=== PATIENT | male | born 1955 | race Caucasian/White ===

== ENCOUNTER 2021-08-15 13:59 | Inpatient (IN) | payer MEDICARE, OTHER ==
[~2021-08-15] VITALS: Ht 188 cm; Wt 98.4 kg
--- NOTE | 2021-08-15 14:01 | NUR ---
TO ER BED 12, [facility]MEN PA FROM [facility] DUE TO BUN=81 AND CREA=4.5, SENT BY DR CAMACHO, AAOX3, CHANGED INTO A GOWN, CONNECTED TO MONITOR, AWAITING MD ORDERS
--- NOTE | 2021-08-15 14:43 | NUR ---
SALOON KEEPER AT BEDSIDE FOR BLOOD DRAW
--- NOTE | 2021-08-15 14:50 | NUR ---
COVID SWAB AND URINE COLLECTED AND SENT TO LAB
[2021-08-15 14:55] LABS: BASOPHILS % (AUTO) 0.7 % (0.0-2.0); EOSINOPHILS % (AUTO) 4.8 % (0.0-6.0); HEMATOCRIT 23 % (39-51); LYMPHOCYTES # (AUTO) 1.1 K/uL (0.8-4.8); LYMPHOCYTES % (AUTO) 18.9 % (20.0-44.0); MEAN CORPUSCULAR HGB CONC 34 g/dl (31.0-36.0); MEAN CORPUSCULAR VOLUME 95 fL (80-96); MONOCYTES # (AUTO) 0.5 K/uL (0.1-1.30); MONOCYTES % (AUTO) 9.7 % (2.0-12.0); NEUTROPHILS # (AUTO) 3.7 K/uL (1.8-8.9); NEUTROPHILS % (AUTO) 65.9 % (43.0-81.0); PLATELET COUNT (AUTO) 145 K/uL (150-450); RED BLOOD CELL COUNT(AUTO) 2.46 MIL/uL (4.5-6.0); WHITE BLOOD COUNT (AUTO) 5.6 K/uL (4.3-11.0)
[2021-08-15] MEDS ORDERED: IV NS 0.9% 1,000 ML BAG IV ONE (15:00)
[2021-08-15] MEDS ORDERED: MINE133E RC (15:01)
[2021-08-15] MEDS ORDERED: AMIN887L PO (15:01)
[2021-08-15] MEDS ORDERED: MAGN400O6 PO (15:01)
[2021-08-15] MEDS ORDERED: LEVE500T9 PO (15:01)
[2021-08-15] MEDS ORDERED: APIX5TAB PO (15:01)
[2021-08-15] MEDS ORDERED: ACET325T53 PO (15:01)
[2021-08-15] MEDS ORDERED: RISP1TAB7 PO (15:01)
[2021-08-15] MEDS ORDERED: MULT-439 PO (15:01)
[2021-08-15] MEDS ORDERED: ASCO500C17 PO (15:01)
[2021-08-15] MEDS ORDERED: FERR325T23 PO (15:01)
[2021-08-15] MEDS ORDERED: PHEN100C4 PO (15:01)
[2021-08-15] MEDS ORDERED: DIVA250T PO (15:01)
[2021-08-15] MEDS ORDERED: BENZ1TAB7 PO (15:01)
[2021-08-15 15:05] LABS: CALCIUM, SERUM 8.1 mg/dL (8.5-10.1); CREATININE 4.7 mg/dL (0.6-1.3); POTASSIUM 5.8 mmol/L (3.5-5.1)
[2021-08-15 15:12] LABS: ALBUMIN 1.6 g/dL (3.4-5.0); BILIRUBIN,DIRECT 0.1 mg/dL (0.0-0.2); BILIRUBIN,TOTAL 0.1 mg/dL (0.2-1.0); TOTAL PROTEIN, SERUM 4.7 g/dL (6.4-8.2)
[2021-08-15 15:16] LABS: BILIRUBIN,URINE NEGATIVE (NEGATIVE); COLOR,URINE YELLOW (YELLOW); LEUKOCYTE ESTERASE ,URINE NEGATIVE (NEGATIVE); NITRITE, URINE NEGATIVE (NEGATIVE); PROTEIN,URINE >=300 mg/dl (NEGATIVE); UGLUCOSE 100 MG/DL mg/dL (NEGATIVE); UROBILINOGEN,URINE 0.2 EU/dL (0.2)
[2021-08-15 15:22] LABS: BACTERIA,URINE 1+ /HPF (None Seen); RBC,URINE 21-50 /HPF (0-2); WBC,URINE 0-2 /HPF (0-3)
[2021-08-15 15:23] LABS: COARSE GRANULAR CASTS,URINE Few /LPF (None Seen); HYALINE CASTS, URINE Few /LPF (None Seen); MUCUS,URINE Few /LPF (None Seen); WAXY CASTS,URINE RARE /LPF (None Seen)
[2021-08-15] MEDS ORDERED: diphenhydrAMINE HCL 50 MG/ML VIAL ONE (15:26)
[2021-08-15] MEDS ORDERED: LORAZEPAM INJ 2 MG/ML VIAL ONE ×2 (15:27→20:43)
[2021-08-15] MEDS ORDERED: HALOPERIDOL LACTATE INJ 5 MG/ML VIAL ONE (15:27)
[2021-08-15] MEDS ORDERED: LORAZEPAM INJ 2 MG/ML VIAL IM ONE (15:30)
[2021-08-15] MEDS ORDERED: NICOTINE PATCH (21MG) 21 MG PATCH.TD24 TD ONE (15:30)
[2021-08-15] MEDS ORDERED: HALOPERIDOL LACTATE INJ 5 MG/ML VIAL IM ONE (15:30)
[2021-08-15] MEDS ORDERED: diphenhydrAMINE HCL 50 MG/ML VIAL IM ONE (15:30)
[2021-08-15] MEDS ORDERED: NICOTINE PATCH (21MG) 21 MG PATCH.TD24 TD SCH (15:30)
[2021-08-15 15:31] LABS: BAND % (MANUAL) 1 % (0.0-5.0); EOSINOPHILS % (MANUAL) 4 % (0-4); LYMPHOCYTES % (MANUAL) 24 % (16-48); MONOCYTES % (MANUAL) 6 % (0-11.0); NEUTROPHILS % (MANUAL) 65 (42-76)
[2021-08-15] MEDS ORDERED: SODIUM POLYSTYRENE SULFONATE 15 G/60 ML BOTTLE RC ONE (16:30)
[2021-08-15] MEDS ORDERED: SODIUM POLYSTYRENE SULFONATE 15 G/60 ML BOTTLE ONE (16:39)
[2021-08-15] MEDS ORDERED: ONDANSETRON HCL/PF 4 MG/2 ML VIAL IVP PRN (18:00)
[2021-08-15] MEDS ORDERED: MAG HYDROX/AL HYDROX/SIMETH 30 ML UDC PO PRN (18:00)
[2021-08-15] MEDS ORDERED: MINERAL OIL 133 ML (PYXIS) 1 EA ENEMA RC PRN (18:00)
[2021-08-15] MEDS ORDERED: Z GUARD REMEDY 4 OZ OINT TP PRN (18:00)
[2021-08-15] MEDS ORDERED: ACETAMINOPHEN 325 MG TABLET PO PRN (18:00)
[2021-08-15] MEDS ORDERED: MAGNESIUM HYDROXIDE 30 ML UDC PO PRN ×2 (18:00)
[2021-08-15] MEDS ORDERED: IV NS 0.9% 1,000 ML IV PRN (18:00)
[2021-08-15] MEDS ORDERED: Sodium Bicarbonate 150 MEQ in IV D5W 1,000 ML IV PRN (19:00)
[2021-08-15 19:58] LABS: PHENYTOIN (DILANTIN) 2.1 ug/ml (10.0-20.0)
[2021-08-15] MEDS ORDERED: LEVETIRACETAM (250 MG) 250 MG TABLET PO ONE (20:42)
[2021-08-15] MEDS: LORAZEPAM INJ 2 MG/ML VIAL IV PRN (20:50)
[2021-08-15] MEDS: LEVETIRACETAM (250 MG) 250 MG TABLET PO SCH (20:50)
--- NOTE | 2021-08-15 20:50 | NUR ---
PT RESTLESS AND AGITATED; YELLING. NON-PHAMACOLOGICAL INTERVENTIONS DONE: ADLS, URINAL, FOOD, WATER, REPOSITIONING. ADMINISTERED ATIVAN 0.5MG IVP VIA RAC #20G S/L ORDERED. WILL REASSESS FOR RESTLESSNESS AND AGITATIONS. BP 188/105 HR 102
--- NOTE | 2021-08-16 01:49 | NUR ---
ADLS DONE. PT KEPT C/D. IV DISLODGED. ESTABLISHED LAC #20G S/L SODIUM BICARB 150MEQ @ 50ML/HR. TOLERATING WELL
--- NOTE | 2021-08-16 05:27 | NUR ---
ER PROPERTY UNDERWRITER @ BEDSIDE
[2021-08-16 05:56] LABS: BASOPHILS # (AUTO) 0.1 K/uL (0.0-0.2); BASOPHILS % (AUTO) 0.7 % (0.0-2.0); EOSINOPHILS % (AUTO) 2.6 % (0.0-6.0); HEMATOCRIT 22 % (39-51); HEMOGLOBIN 7.7 g/dL (13.5-17.5); LYMPHOCYTES # (AUTO) 0.9 K/uL (0.8-4.8); LYMPHOCYTES % (AUTO) 12.8 % (20.0-44.0); MEAN CORPUSCULAR HGB CONC 35 g/dl (31.0-36.0); MEAN CORPUSCULAR VOLUME 94 fL (80-96); MONOCYTES # (AUTO) 0.8 K/uL (0.1-1.30); MONOCYTES % (AUTO) 10.4 % (2.0-12.0); NEUTROPHILS # (AUTO) 5.5 K/uL (1.8-8.9); NEUTROPHILS % (AUTO) 73.5 % (43.0-81.0); PLATELET COUNT (AUTO) 147 K/uL (150-450); RED BLOOD CELL COUNT(AUTO) 2.38 MIL/uL (4.5-6.0); WHITE BLOOD COUNT (AUTO) 7.4 K/uL (4.3-11.0)
[2021-08-16 06:25] LABS: ALBUMIN 1.6 g/dL (3.4-5.0); BILIRUBIN,TOTAL 0.2 mg/dL (0.2-1.0); CALCIUM, SERUM 7.6 mg/dL (8.5-10.1); CREATININE 4.7 mg/dL (0.6-1.3); MAGNESIUM 1.8 mg/dL (1.8-2.4); PHOSPHORUS 6.9 mg/dL (2.5-4.9); POTASSIUM 5.5 mmol/L (3.5-5.1); TOTAL PROTEIN, SERUM 4.8 g/dL (6.4-8.2)
--- NOTE | 2021-08-16 06:44 | NUR ---
ASSIGNED TO 312-1. REPORT TO BE GIVEN AFTER CHANGE OF SHIFT.
--- NOTE | 2021-08-16 07:56 | NUR ---
REPORT GIVEN TO MIL SHORT FOR MONTY
--- NOTE | 2021-08-16 08:30 | NUR ---
TRANSFERRED TO BED 312 IN STABLE CONDITION
[2021-08-16 08:35] VITALS: BP 153/88
[2021-08-16] MEDS ORDERED: SODIUM POLYSTYRENE SULFONATE 15 G/60 ML BOTTLE PO ONE (09:00)
[2021-08-16] MEDS ORDERED: PROSTAT (PYXIS) 30 ML UDC PO SCH (09:00)
--- NOTE | 2021-08-16 09:00 | NUR ---
MS RN NOTES MD CONTACTED TO VERIFY ADMINISTRATION OF SCHEDULED ELIQUIS 5 MG PO. MD CAMACHO INFORMED PATIENT'S HGB 7.7 AND APPROVED ADMINISTRATION OF MEDICATION. ELIQUIS 5 MG PO ADMINISTERED ORDERED.
[2021-08-16] MEDS: risperiDONE 1 MG TABLET PO SCH ×3 (09:06→16:40)
[2021-08-16] MEDS: MULTIVIT W/MINERALS 1 TAB TABLET PO SCH (09:06)
[2021-08-16] MEDS: DIVALPROEX SODIUM 250 MG TABLET.DR PO SCH ×2 (09:06→21:48)
[2021-08-16] MEDS: PHENYTOIN EXTENDED RELEASE 100 MG CAPSULE PO SCH ×3 (09:06→16:39)
[2021-08-16] MEDS: ASCORBIC ACID 500 MG TABLET PO SCH (09:07)
[2021-08-16] MEDS: BENZTROPINE MESYLATE (1 MG) 1 MG TABLET PO SCH (09:07)
[2021-08-16] MEDS: LEVETIRACETAM (250 MG) 250 MG TABLET PO SCH ×2 (09:07→21:48)
[2021-08-16] MEDS: FERROUS SULFATE (325 MG) 325 MG/TAB TABLET PO SCH (09:07)
[2021-08-16] MEDS: APIXABAN 5 MG TABLET PO SCH ×2 (09:39→16:40)
--- NOTE | 2021-08-16 11:09 | NUR ---
MS RN ADMITTING NOTES ADMITTED A 65 Y/O MALE TO UNIT AT 0830 VIA GURNEY WITH DIAGNOSIS OF RENAL FAILURE. PT IS A/O X3. ABLE TO MAKE NEEDS KNOWN. ORIENTED TO STAFF AND ROOM. PT PROVIDED WITH 1:1 SITTER PER MD ORDER FOR SAFETY AND CLOSE MONITORING. ON ROOM AIR, TOLERATING WELL WITH NO ACUTE RESPIRATORY DISTRESS NOTED. ASSESSMENT DONE. PT WITH IV ACCESS PRESENT ON LAC G#20 INTACT WITH IVF OF NA BICARB 150MEQ IN D5W AT 5OML/HR, NO S/S X OF INFILTRATION AT SITE NOTED.. ABDOMEN SOFT, NON-TENDER AND NON-DISTENDED WITH BOWEL SOUNDS PRESENT ON FOUR QUADRANTS. LUNGS CLEAR ON AUSCULTATION. PT WITH INTACT SKIN AND NOTED WITH PITTING EDEMA ON BLE AND FEET, ELEVATED WITH PILLOWS. SAFETY MEASURES INITIATED; BED PLACED IN LOWEST LOCKED POSITION WITH SIDE-RAILS UP X2. CALL LIGHT WITHIN REACH. WILL CONTINUE TO MONITOR.
[2021-08-16] MEDS: PROSOURCE / PROSTAT (PYXIS) 30 ML UDC PO SCH ×2 (12:19→17:25)
[2021-08-16] MEDS: LORAZEPAM INJ 2 MG/ML VIAL IV PRN (15:02)
--- NOTE | 2021-08-16 15:03 | NUR ---
RN NOTES PT IS VERY ANXIOUS, RESTLESS AND SCREAMING HE WANT'S TO GO BACK TO [facility]. PRN ATIVAN 0.5MG IVP ADMINISTERED AT 1502. WILL CONTINUE TO CLOSELY MONITOR PT.
--- NOTE | 2021-08-16 15:30 | NUR ---
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
[2021-08-16 16:00] VITALS: BP 151/79
--- NOTE | 2021-08-16 18:18 | NUR ---
MS RN CLOSING NOTES PATIENT A/O X 3, ABLE TO MAKE NEEDS KNOWN, WITH 1:1 SITTER PER MD ORDER FOR SAFETY AND CLOSE MONITORING. ON ROOM AIR, TOLERATING WELL WITH NO ACUTE RESPIRATORY DISTRESS NOTED. IV ACCESS PRESENT ON LAC G#20 INTACT WITH IVF OF NA BICARB 150MEQ IN D5W AT 5OML/HR, NO S/S X OF INFILTRATION AT SITE NOTED. SAFETY MEASURES INITIATED; BED PLACED IN LOWEST LOCKED POSITION WITH SIDE-RAILS UP X2. CALL LIGHT WITHIN REACH. WILL ENDORSE TO TOOL BUILDER FOR MONTY.
--- NOTE | 2021-08-16 19:58 | NUR ---
MS RN OPENING NOTE PATIENT RECEIVED ASLEEP IN BED W/ SCOTT MENDEZ, IN THE ROOM. A/OX3. NO S/S OF DISTRESS, BREATHING SYMMETRICAL. RAC #20 INTACT AND PATENT RUNNING W/ NaHCO3 IN D5W RUNNING AT 50ML/HR. SAFETY MEASURES IN PLACE: BED AT LOWEST POSITION, RAILS UP X2, CALL ROONEY WITHIN REACH. WILL CONTINUE TO MONITOR PATIENT.
[2021-08-16 20:00] VITALS: BP 154/89
--- NOTE | 2021-08-17 06:27 | NUR ---
MS RN CLOSING NOTE PATIENT ASLEEP IN BED. A/OX3. NO S/S OF DISTRESS, BREATHING SYMMETRICAL. NO PAIN NOTED. RAC #20 SL INTACT AND PATENT. SAFETY MEASURES IN PLACE: BED AT LOWEST POSITION, RAILS UP X2, CALL ROONEY WITHIN REACH. WILL ENDORSE TO FOLLOWING SHIFT FOR MONTY.
[2021-08-17 07:21] LABS: BASOPHILS # (AUTO) 0.1 K/uL (0.0-0.2); BASOPHILS % (AUTO) 0.8 % (0.0-2.0); EOSINOPHILS % (AUTO) 3.7 % (0.0-6.0); LYMPHOCYTES # (AUTO) 1.3 K/uL (0.8-4.8); LYMPHOCYTES % (AUTO) 21.4 % (20.0-44.0); MEAN CORPUSCULAR HGB CONC 34 g/dl (31.0-36.0); MEAN CORPUSCULAR VOLUME 95 fL (80-96); MONOCYTES # (AUTO) 0.6 K/uL (0.1-1.30); MONOCYTES % (AUTO) 10.2 % (2.0-12.0); NEUTROPHILS % (AUTO) 63.9 % (43.0-81.0); PLATELET COUNT (AUTO) 148 K/uL (150-450); RED BLOOD CELL COUNT(AUTO) 2.05 MIL/uL (4.5-6.0); WHITE BLOOD COUNT (AUTO) 6.2 K/uL (4.3-11.0)
[2021-08-17 07:35] LABS: HEMATOCRIT 19 % (39-51); HEMOGLOBIN 6.7 g/dL (13.5-17.5)
[2021-08-17 07:37] LABS: CALCIUM, SERUM 7.6 mg/dL (8.5-10.1); MAGNESIUM 1.8 mg/dL (1.8-2.4); PHOSPHORUS 7.3 mg/dL (2.5-4.9); POTASSIUM 4.5 mmol/L (3.5-5.1)
--- NOTE | 2021-08-17 07:38 | NUR ---
MS RN OPENING NOTES RECEIVED PATIENT ASLEEP IN BED, EASY TO AROUSE. PT WITH VALENCIA MENDEZ AT BEDSIDE. A/O X 3. NO SOB. NO S/SX OF DISTRESS NOTED. NO C/O PAIN. BREATHING IS EVEN AND UNLABORED. IV ACCESS RAC#20 PATENT AND INTACT. SAFETY MEASURES IN PLACE WITH BED AT LOWEST POSITION, SIDE RAILS UP X2, CALL LIGHT IS WITHIN REACH. WILL CONTINUE TO MONITOR PATIENT THROUGHOUT SHIFT.
--- NOTE | 2021-08-17 08:00 | NUR ---
0803 LAB CALLED SPOKE WITH SAMRA TO REPORT CRITICAL LAB VALUE FOR HGB 6.[address] CAMACHO MADE AWARE. TYPE AND SCREEN ORDERED.
[2021-08-17] MEDS: LEVETIRACETAM (250 MG) 250 MG TABLET PO SCH ×2 (09:17→20:37)
[2021-08-17] MEDS: MULTIVIT W/MINERALS 1 TAB TABLET PO SCH (09:17)
[2021-08-17] MEDS: LORAZEPAM INJ 2 MG/ML VIAL IV PRN (09:17)
[2021-08-17] MEDS: risperiDONE 1 MG TABLET PO SCH ×3 (09:17→16:33)
[2021-08-17] MEDS: BENZTROPINE MESYLATE (1 MG) 1 MG TABLET PO SCH (09:17)
[2021-08-17] MEDS: ASCORBIC ACID 500 MG TABLET PO SCH (09:18)
[2021-08-17] MEDS: PHENYTOIN EXTENDED RELEASE 100 MG CAPSULE PO SCH ×3 (09:18→16:33)
[2021-08-17] MEDS: DIVALPROEX SODIUM 250 MG TABLET.DR PO SCH ×2 (09:18→20:37)
[2021-08-17] MEDS: FERROUS SULFATE (325 MG) 325 MG/TAB TABLET PO SCH (09:18)
[2021-08-17] MEDS: PROSOURCE / PROSTAT (PYXIS) 30 ML UDC PO SCH ×3 (09:19→16:33)
[2021-08-17] MEDS: Sodium Bicarbonate 150 MEQ in IV D5W 1,000 ML IV SCH (09:36)
[2021-08-17 11:06] LABS: COMPLEMENT C3, SERUM 114 mg/dL (82-167); COMPLEMENT C4, SERUM 26 mg/dL (12-38)
[2021-08-17 12:25] LABS: IRON, SERUM 87 ug/dl (50-175); TOTAL IRON BINDING CAPACITY 214 ug/dl (250-450)
[2021-08-17 13:23] LABS: EOSINOPHILS % (MANUAL) 3 % (0-4); LYMPHOCYTES % (MANUAL) 23 % (16-48); MONOCYTES % (MANUAL) 9 % (0-11.0); NEUTROPHILS % (MANUAL) 65 (42-76)
--- NOTE | 2021-08-17 16:02 | NUR ---
RN NOTE CALLED BLOOD BANK TO GET AN UPDATE REGARDING PRBC ORDER, SPOKE WITH LISANDRA. TYPE AND SCREEN NOT YET COMPLETED.
--- NOTE | 2021-08-17 16:49 | NUR ---
RN NOTE CHARGE NURSE, ADRI CALLED BLOOD BANK FOR PRBC UPDATE. PER LISANDRA AT BLOOD BANK, SHE IS WORKING ALONE AND IT IS BUSY. PRBC NOT READY. WILL CONT. TO F/U.
[2021-08-17 18:21] VITALS: BP 139/69
--- NOTE | 2021-08-17 18:24 | NUR ---
RN NOTE STARTED PRBC TRANSFUSION AT THIS TIME. ALL VITALS RECORDED AND STABLE. VERIFIED PRB UNIT WITH DEJA MONTENEGRO. WILL MONITOR PT FOR ANY REACTIONS.
[2021-08-17 18:36] VITALS: BP 146/85
[2021-08-17 18:51] VITALS: BP 155/81
--- NOTE | 2021-08-17 18:54 | NUR ---
MS RN CLOSING NOTES PATIENT ASLEEP IN BED, EASY TO AROUSE. PT WITH VALENCIA MENDEZ AT BEDSIDE. A/O X 3. PRBC RUNNING AT THIS TIME AT 100MLS/HR. NO SOB. NO S/SX OF DISTRESS NOTED. NO C/O PAIN. BREATHING IS EVEN AND UNLABORED. IV ACCESS RAC#20 PATENT AND INTACT . SAFETY MEASURES IN PLACE WITH BED AT LOWEST POSITION, SIDE RAILS UP X2, CALL LIGHT IS WITHIN REACH. WILL CONTINUE TO MONITOR PATIENT THROUGHOUT SHIFT. Addendum: 08/17/21 at 1855 by AVA GRISSOM RN ELENA
--- NOTE | 2021-08-17 18:55 | NUR ---
MS RN CLOSING NOTES PATIENT ASLEEP IN BED, EASY TO AROUSE. PT WITH VALENCIA MENDEZ AT BEDSIDE. A/O X 3. PRBC RUNNING AT THIS TIME AT 100MLS/HR. NO SOB. NO S/SX OF DISTRESS NOTED. NO C/O PAIN. BREATHING IS EVEN AND UNLABORED. IV ACCESS RAC#20 PATENT AND INTACT . SAFETY MEASURES IN PLACE WITH BED AT LOWEST POSITION, SIDE RAILS UP X2, CALL LIGHT IS WITHIN REACH. WILL ENDORSE CONTINUITY OF CARE TO ONCOMING SHIFT.
[2021-08-17 19:21] VITALS: BP 133/76
--- NOTE | 2021-08-17 19:30 | NUR ---
RN OPENING NOTE PATIENT IN BED EYES CLOSED. EASILY AWAKENED AND OPENS EYES. A/O X 3 AT THIS TIME. 1:1 SITTER AT BEDSIDE. PATIENT IS CURRENTLY ON RA, TOLERATING WELL. NO REPORTS OF DYSPNEA, NO SOB. PATIENT HAS A LAC 20 G, PATENT AND INTACT. PATIENT HAS NA BICARB RUNNING AND BLOOD TRANSFUSION ON GOING STARTED AT 1820 BY DEJA ESCALANTE. SAFETY MEASURES IN PLACE: BED LOCKED AND IN LOWEST POSITION, CALL LIGHT WITHIN REACH, SIDE RAILS UP. WILL MONITOR PATIENT CLOSELY.
[2021-08-17 20:00] VITALS: BP 133/76
[2021-08-17 22:05] VITALS: BP 151/91
--- NOTE | 2021-08-17 22:05 | NUR ---
BLOOD TRANSFUSION ENDED. NO TRANSFUSION REACTIONS OBSERVED. VITAL SIGNS: BP-151/91 HR-81 TEMP-98.0 RR-18 SPO2-96%
[2021-08-18 07:07] LABS: BASOPHILS # (AUTO) 0.1 K/uL (0.0-0.2); BASOPHILS % (AUTO) 1.1 % (0.0-2.0); EOSINOPHILS % (AUTO) 4.9 % (0.0-6.0); HEMATOCRIT 22 % (39-51); HEMOGLOBIN 7.7 g/dL (13.5-17.5); LYMPHOCYTES # (AUTO) 1.3 K/uL (0.8-4.8); LYMPHOCYTES % (AUTO) 22.9 % (20.0-44.0); MEAN CORPUSCULAR HGB CONC 35 g/dl (31.0-36.0); MEAN CORPUSCULAR VOLUME 92 fL (80-96); MONOCYTES # (AUTO) 0.6 K/uL (0.1-1.30); MONOCYTES % (AUTO) 11.2 % (2.0-12.0); NEUTROPHILS # (AUTO) 3.4 K/uL (1.8-8.9); NEUTROPHILS % (AUTO) 59.9 % (43.0-81.0); PLATELET COUNT (AUTO) 142 K/uL (150-450); WHITE BLOOD COUNT (AUTO) 5.6 K/uL (4.3-11.0)
--- NOTE | 2021-08-18 07:20 | NUR ---
RN CLOSING NOTE PATIENT IN BED EYES CLOSED. EASILY AWAKENED AND OPENS EYES. A/O X 3 AT THIS TIME. 1:1 SITTER AT BEDSIDE. PATIENT IS CURRENTLY ON RA, TOLERATING WELL. NO REPORTS OF DYSPNEA, NO SOB. PATIENT HAS A LAC 20 G, PATENT AND INTACT. PATIENT HAS NA BICARB RUNNING AT 50 ML/HR. PATIENT CALM AT THIS MOMENT. ALL NEEDS MET AND ATTENDED. ALL ORDERS CARRIED OUT. SAFETY MEASURES IN PLACE: BED LOCKED AND IN LOWEST POSITION, CALL LIGHT WITHIN REACH, SIDE RAILS UP. WILL ENDORSE TO DAY SHIFT NURSE FOR MONTY.
--- NOTE | 2021-08-18 07:30 | NUR ---
MS RN OPENING NOTES RECEIVED PATIENT ASLEEP IN BED, EASY TO AROUSE. PT WITH SYDNEE MENDEZ AT BEDSIDE. A/O X 3. NO SOB. NO S/SX OF DISTRESS NOTED. NO C/O PAIN. BREATHING IS EVEN AND UNLABORED. IV ACCESS RAC#20 PATENT AND INTACT WITH NA BICARB RUNNING 50ML/HR. SAFETY MEASURES IN PLACE WITH BED AT LOWEST POSITION, SIDE RAILS UP X2, CALL LIGHT IS WITHIN REACH. WILL CONTINUE TO MONITOR PATIENT THROUGHOUT SHIFT.
[2021-08-18 08:22] LABS: CALCIUM, SERUM 7.8 mg/dL (8.5-10.1); CREATININE 5.1 mg/dL (0.6-1.3); MAGNESIUM 1.9 mg/dL (1.8-2.4); PHOSPHORUS 7.1 mg/dL (2.5-4.9)
[2021-08-18 08:32] LABS: THYROID STIMULATING HORMONE 2.434 uIU/mL (0.358-3.74); URIC ACID 7.4 mg/dL (2.6-7.2)
[2021-08-18] MEDS: DIVALPROEX SODIUM 250 MG TABLET.DR PO SCH ×2 (08:38→21:58)
[2021-08-18] MEDS: LEVETIRACETAM (250 MG) 250 MG TABLET PO SCH ×2 (08:38→21:57)
[2021-08-18] MEDS: risperiDONE 1 MG TABLET PO SCH ×3 (08:38→16:22)
[2021-08-18] MEDS: PHENYTOIN EXTENDED RELEASE 100 MG CAPSULE PO SCH ×3 (08:38→16:22)
[2021-08-18] MEDS: FERROUS SULFATE (325 MG) 325 MG/TAB TABLET PO SCH (08:38)
[2021-08-18] MEDS: MULTIVIT W/MINERALS 1 TAB TABLET PO SCH (08:38)
[2021-08-18] MEDS: BENZTROPINE MESYLATE (1 MG) 1 MG TABLET PO SCH (08:38)
[2021-08-18] MEDS: ASCORBIC ACID 500 MG TABLET PO SCH (08:38)
[2021-08-18] MEDS: PROSOURCE / PROSTAT (PYXIS) 30 ML UDC PO SCH ×3 (08:39→16:13)
[2021-08-18] MEDS: Sodium Bicarbonate 150 MEQ in IV D5W 1,000 ML IV SCH (09:06)
--- NOTE | 2021-08-18 09:27 | NUR ---
WOUND CARE CONSULT: LIMITED ASSESSMENT DUE TO PT AGITATED AND SCREAMING. LEFT HEEL DRY WOUND NOTED, PRESENT ON ADMISSION. DPM CONSULT MADE TO DR ALFREDA SHELTON. PT IS INDEPENDENT WITH BED MOBILITY. CURRENT JOHANN SCORE IS 20. MD IN AGREEMENT WITH PLAN OF CARE.
[2021-08-18] MEDS: LORAZEPAM INJ 2 MG/ML VIAL IV PRN ×2 (10:02→16:44)
[2021-08-18 10:07] LABS: *SPE A/G RATIO 0.8 (0.7-1.7); *SPE ALPHA-1-GLOBULIN 0.3 g/dL (0.0-0.4); *SPE ALPHA-2-GLOBULIN 0.5 g/dL (0.4-1.0); *SPE M-SPIKE Not Observed g/dL (Not Observed)
[2021-08-18 12:14] LABS: OCCULT BLOOD STOOL NEGATIVE (NEGATIVE)
--- NOTE | 2021-08-18 18:40 | NUR ---
MS RN CLOSING NOTES PATIENT ASLEEP IN BED, EASY TO AROUSE. PT WITH SYDNEE MENDEZ AT BEDSIDE. A/O X 3. NO SOB. NO S/SX OF DISTRESS NOTED. NO C/O PAIN. BREATHING IS EVEN AND UNLABORED. IV ACCESS RAC#20 PATENT AND INTACT WITH NS BICARB RUNNING @50MLS/HR . SAFETY MEASURES IN PLACE WITH BED AT LOWEST POSITION, SIDE RAILS UP X2, CALL LIGHT IS WITHIN REACH. ALL NEEDS MET THROUGHOUT SHIFT. WILL ENDORSE CONTINUITY OF CARE TO ONCOMING SHIFT.
[2021-08-18 20:00] VITALS: BP 143/91
--- NOTE | 2021-08-18 20:00 | NUR ---
MS RN OPENING NOTE PATIENT SLEEPING IN BED WITH SITTER AT BEDSIDE, EASILY AWAKENED, ALERT/ORIENTED X 3, PT ABLE TO MAKE NEEDS KNOWN. PT STABLE ON RA, NO S/S OF DISTRESS OR SOB NOTED, BREATHING EVEN AND UNLABORED. IV ACCESS ON LEFT AC #20G INFUSING NA BICARB @ 50 ML/HR. SAFETY MEASURES IN PLACE: CALL LIGHT WITHIN REACH, SIDE RAILS UP X 2, BED LOCKED IN LOW POSITION, BED ALARM ON. WILL CONTINUE TO MONITOR PATIENT
--- NOTE | 2021-08-19 06:46 | NUR ---
MS RN CLOSING NOTE PATIENT AWAKE IN BED WITH SITTER AT BEDSIDE, PT ABLE TO MAKE NEEDS KNOWN. PT STABLE ON RA, NO S/S OF DISTRESS OR SOB NOTED, BREATHING EVEN AND UNLABORED. IV ACCESS ON LEFT AC #20G INFUSING NA BICARB @ 50 ML/HR. MEDICATIONS GIVEN ORDERED, PT NEEDS MET THROUGHOUT SHIFT. NO SIGNIFICANT CHANGES THROUGHOUT SHIFT. DRESSING ON LEFT HEEL CLEAN, DRY AND INTACT. SAFETY MEASURES IN PLACE: CALL LIGHT WITHIN REACH, SIDE RAILS UP X 2, BED LOCKED IN LOW POSITION, BED ALARM ON. WILL ENDORSE TO DAY SHIFT NURSE FOR CONTINUITY OF CARE
[2021-08-19 07:22] LABS: CALCIUM, SERUM 7.8 mg/dL (8.5-10.1); CREATININE 5.4 mg/dL (0.6-1.3)
[2021-08-19 07:45] LABS: BASOPHILS # (AUTO) 0.1 K/uL (0.0-0.2); BASOPHILS % (AUTO) 0.9 % (0.0-2.0); EOSINOPHILS % (AUTO) 4.9 % (0.0-6.0); HEMATOCRIT 24 % (39-51); HEMOGLOBIN 8.1 g/dL (13.5-17.5); LYMPHOCYTES # (AUTO) 1.6 K/uL (0.8-4.8); LYMPHOCYTES % (AUTO) 22.5 % (20.0-44.0); MEAN CORPUSCULAR HGB CONC 34 g/dl (31.0-36.0); MEAN CORPUSCULAR VOLUME 93 fL (80-96); MONOCYTES # (AUTO) 0.8 K/uL (0.1-1.30); MONOCYTES % (AUTO) 12.1 % (2.0-12.0); NEUTROPHILS # (AUTO) 4.1 K/uL (1.8-8.9); NEUTROPHILS % (AUTO) 59.6 % (43.0-81.0); PLATELET COUNT (AUTO) 142 K/uL (150-450); RED BLOOD CELL COUNT(AUTO) 2.54 MIL/uL (4.5-6.0); WHITE BLOOD COUNT (AUTO) 6.9 K/uL (4.3-11.0)
[2021-08-19 08:00] VITALS: BP 150/101
[2021-08-19] MEDS: MULTIVIT W/MINERALS 1 TAB TABLET PO SCH (08:56)
[2021-08-19] MEDS: ASCORBIC ACID 500 MG TABLET PO SCH (08:56)
[2021-08-19] MEDS: BENZTROPINE MESYLATE (1 MG) 1 MG TABLET PO SCH (08:56)
[2021-08-19] MEDS: FERROUS SULFATE (325 MG) 325 MG/TAB TABLET PO SCH (08:56)
[2021-08-19] MEDS: DIVALPROEX SODIUM 250 MG TABLET.DR PO SCH ×2 (08:56→20:12)
[2021-08-19] MEDS: PHENYTOIN EXTENDED RELEASE 100 MG CAPSULE PO SCH ×3 (08:57→16:57)
[2021-08-19] MEDS: LEVETIRACETAM (250 MG) 250 MG TABLET PO SCH ×2 (08:57→20:12)
[2021-08-19] MEDS: PROSOURCE / PROSTAT (PYXIS) 30 ML UDC PO SCH ×3 (08:59→16:53)
[2021-08-19] MEDS: risperiDONE 1 MG TABLET PO SCH ×3 (08:59→16:58)
[2021-08-19] MEDS: Sodium Bicarbonate 150 MEQ in IV D5W 1,000 ML IV SCH (09:09)
[2021-08-19 11:11] LABS: *ANA ANTI-CENTROMERE B AB <0.2 AI (0.0-0.9); *ANA ANTI-DNA(DS) AB, QN <1 IU/mL (0-9); *ANA ANTI-JO-1 <0.2 AI (0.0-0.9); *ANA ANTICHROMATIN ANTIBODY <0.2 AI (0.0-0.9); *ANA RNP ANTIBODIES <0.2 AI (0.0-0.9); *ANA SJOGREN'S ANTI-SS-A <0.2 AI (0.0-0.9); *ANA SJOGREN'S ANTI-SS-B <0.2 AI (0.0-0.9); *ANAANTI-SCLERODERMA-70 AB <0.2 AI (0.0-0.9); *ANASMITH AB <0.2 AI (0.0-0.9)
[2021-08-19] MEDS: NICOTINE PATCH (21MG) 21 MG PATCH.TD24 TD SCH (11:31)
[2021-08-19 16:00] VITALS: BP 141/61
[2021-08-19] MEDS: POVIDONE-IODINE OINT 28.4 GM TUBE TP SCH (16:53)
--- NOTE | 2021-08-19 19:30 | NUR ---
RN opening notes Received Pt from morning nurse. Pt is resting in bed comfortably. Pt is alert and orientedX2-3. On room air. No SOB. No S/S of distress noted. LIAT midline # 18 is clean, intact and infusing well NA bicarb@ 50 ml/hr. LAC# 20 is clean, intact and SL. Sitter at the bedside. Safety precautions is maintained. Bed at low position, brakes locked, side rails upX3, and call light is within reach. Will continue to monitor.
[2021-08-19 20:00] VITALS: BP 145/93
[2021-08-20] MEDS: Sodium Bicarbonate 150 MEQ in IV D5W 1,000 ML IV SCH ×2 (05:10→10:34)
[2021-08-20 06:18] LABS: BASOPHILS # (AUTO) 0.1 K/uL (0.0-0.2); BASOPHILS % (AUTO) 0.9 % (0.0-2.0); EOSINOPHILS % (AUTO) 6.4 % (0.0-6.0); HEMATOCRIT 22 % (39-51); HEMOGLOBIN 7.6 g/dL (13.5-17.5); LYMPHOCYTES # (AUTO) 1.5 K/uL (0.8-4.8); LYMPHOCYTES % (AUTO) 22.3 % (20.0-44.0); MEAN CORPUSCULAR HGB CONC 35 g/dl (31.0-36.0); MEAN CORPUSCULAR VOLUME 92 fL (80-96); MONOCYTES # (AUTO) 0.8 K/uL (0.1-1.30); MONOCYTES % (AUTO) 11.9 % (2.0-12.0); NEUTROPHILS # (AUTO) 3.8 K/uL (1.8-8.9); NEUTROPHILS % (AUTO) 58.5 % (43.0-81.0); PLATELET COUNT (AUTO) 142 K/uL (150-450); RED BLOOD CELL COUNT(AUTO) 2.38 MIL/uL (4.5-6.0); WHITE BLOOD COUNT (AUTO) 6.5 K/uL (4.3-11.0)
--- NOTE | 2021-08-20 06:30 | NUR ---
RN closing notes Pt is resting in bed comfortably. Pt is alert and orientedX2-3. On room air. No SOB. No S/S of distress noted. VS is stable. routine meds were given as ordered.. LIAT midline # 18 is clean, intact and infusing well NA bicarb@ 50 ml/hr. LAC# 20 is clean, intact and SL. No sitter. Safety precautions is maintained. Bed at low position, brakes locked, side rails upX3, and call light is within reach. Will endorse to am nurse for MONTY.
--- NOTE | 2021-08-20 07:30 | NUR ---
MS RN OPENING NOTE SEEN PATIENT LYING DOWN IN BED, ASLEEP. TOLERATING ROOM AIR WELL. NO ACUTE DISTRESS NOTED. RESPIRATION EVEN AND UNLABORED. SITTER PRESENT IN THE ROOM. HAS LAC #20G AND LIAT MIDLINE #18 WITH NA BICARBONATE @ 50 ML/HR INFUSING WELL. BED LOCKED AND IN LOW POSITION, SIDE RAILS UP X3, C/L WITHIN REACH. WILL CONTINUE TO MONITOR DURING SHIFT.
[2021-08-20 07:49] LABS: CALCIUM, SERUM 7.7 mg/dL (8.5-10.1); CREATININE 5.4 mg/dL (0.6-1.3); MAGNESIUM 1.8 mg/dL (1.8-2.4); PHOSPHORUS 6.6 mg/dL (2.5-4.9); POTASSIUM 3.9 mmol/L (3.5-5.1)
[2021-08-20] MEDS ORDERED: LORAZEPAM 1 MG TABLET PO PRN (09:30)
[2021-08-20] MEDS ORDERED: QUETIAPINE FUMARATE 25 MG TABLET PO PRN (09:30)
[2021-08-20] MEDS: DIVALPROEX SODIUM 250 MG TABLET.DR PO SCH ×2 (09:51→21:15)
[2021-08-20] MEDS: FERROUS SULFATE (325 MG) 325 MG/TAB TABLET PO SCH (09:52)
[2021-08-20] MEDS: BENZTROPINE MESYLATE (1 MG) 1 MG TABLET PO SCH (09:52)
[2021-08-20] MEDS: LEVETIRACETAM (250 MG) 250 MG TABLET PO SCH ×2 (09:52→21:15)
[2021-08-20] MEDS: ASCORBIC ACID 500 MG TABLET PO SCH (09:52)
[2021-08-20] MEDS: risperiDONE 1 MG TABLET PO SCH ×3 (09:52→17:09)
[2021-08-20] MEDS: PHENYTOIN EXTENDED RELEASE 100 MG CAPSULE PO SCH ×3 (09:52→17:08)
[2021-08-20] MEDS: MULTIVIT W/MINERALS 1 TAB TABLET PO SCH (09:52)
[2021-08-20] MEDS: PROSOURCE / PROSTAT (PYXIS) 30 ML UDC PO SCH ×3 (09:53→17:15)
[2021-08-20] MEDS: NICOTINE PATCH (21MG) 21 MG PATCH.TD24 TD SCH (09:54)
[2021-08-20] MEDS: POVIDONE-IODINE OINT 28.4 GM TUBE TP SCH ×2 (10:02→17:16)
[2021-08-20] MEDS: AMLODIPINE BESYLATE 2.5 MG TABLET PO SCH (17:08)
--- NOTE | 2021-08-20 18:42 | NUR ---
MS RN CLOSING NOTE PATIENT IN BED REST, A/O X2-3. NO ACUTE DISTRESS NOTED. NO SOB OR NOTED. TOLERATING ROOM AIR WELL @ 93% SPO2. SITTER PRESENT DURING SHIFT. IV ACCESS AT LAC #20G AND LIAT MIDLINE #18 WITH NA BICARBONATE @ 50 ML/HR. INTACT AND INFUSING WELL. UNABLE TO COLLECT URINE SPECIMEN, INCONTINENT AND UNABLE TO SAY WHEN HE IS GOING TO URINATE. ALL MEDS GIVEN AND NEEDS ATTENDED. WOUND CARE RENDERED. SAFETY MEASURES IN PLACED: BED LOCKED AND IN LOW POSITION, SIDE RAILS UP X3, C/L WITHIN REACH. WILL ENDORSE TO REFERENCE SERVICES HEAD NURSE FOR MONTY.
--- NOTE | 2021-08-20 19:30 | NUR ---
RN opening notes Pt is resting in bed comfortably. Pt is alert and orientedX2-3. On room air. No SOB. No S/S of distress noted. LIAT midline # 18 is clean, intact and infusing well NA bicarb@ 50 ml/hr. LAC# 20 is clean, intact and SL. Sitter at the bedside. Safety precautions is maintained. Bed at low position, brakes locked, side rails upX3, and call light is within reach. Will continue to monitor.
[2021-08-20 20:00] VITALS: BP 142/74
--- NOTE | 2021-08-21 05:56 | NUR ---
RN notes Pt refused to have blood drawn. explained risks and benefits. Pt keep refusing. Informed and notified shank cutter to come back again. Will continue to monitor.
--- NOTE | 2021-08-21 06:40 | NUR ---
RN closing notes Pt is resting in bed comfortably with a sitter at the bedside. Pt is alert and orientedX2-3. On room air. No SOB. No S/S of distress noted. VS is stable. routine meds were given as ordered. LIAT midline # 18 is clean, intact and infusing well NA bicarb@ 50 ml/hr. LAC# 20 is clean, intact and SL. Kept Pt clean, dry and comfortable. Safety precautions is maintained. Bed at low position, brakes locked, side rails upX3, and call light is within reach. Will endorse to am nurse for MONTY.
--- NOTE | 2021-08-21 07:00 | NUR ---
MS RN OPENING NOTES PATIENT RESTING IN BED WITH SITTER AT BEDSIDE. A/O X 3. ON ROOM AIR TOLERATING WELL WITH NO SOB OR DISTRESS AT THIS TIME. LIAT MIDLINE # 18 INTACT AND INFUSING SODIUM BICARB @ 50 ML/HR. L AC SL # 20 INTACT AND FLUSHES WELL. SAFETY PRECAUTIONS IN PLACE: BED IN LOWEST LOCKED POSITION, SIDE RAILS UP X 2, CALL LIGHT WITHIN REACH. WILL CONTINUE TO MONITOR.
[2021-08-21 08:00] VITALS: BP 138/78
[2021-08-21] MEDS: Sodium Bicarbonate 150 MEQ in IV D5W 1,000 ML IV SCH (08:25)
[2021-08-21] MEDS: NICOTINE PATCH (21MG) 21 MG PATCH.TD24 TD SCH (09:16)
[2021-08-21] MEDS: BENZTROPINE MESYLATE (1 MG) 1 MG TABLET PO SCH (09:17)
[2021-08-21] MEDS: ASCORBIC ACID 500 MG TABLET PO SCH (09:17)
[2021-08-21] MEDS: DIVALPROEX SODIUM 250 MG TABLET.DR PO SCH ×2 (09:17→21:18)
[2021-08-21] MEDS: MULTIVIT W/MINERALS 1 TAB TABLET PO SCH (09:17)
[2021-08-21] MEDS: FERROUS SULFATE (325 MG) 325 MG/TAB TABLET PO SCH (09:17)
[2021-08-21] MEDS: PHENYTOIN EXTENDED RELEASE 100 MG CAPSULE PO SCH ×3 (09:18→17:08)
[2021-08-21] MEDS: risperiDONE 1 MG TABLET PO SCH ×3 (09:18→17:08)
[2021-08-21] MEDS: LEVETIRACETAM (250 MG) 250 MG TABLET PO SCH ×2 (09:18→21:18)
[2021-08-21] MEDS: PROSOURCE / PROSTAT (PYXIS) 30 ML UDC PO SCH ×3 (09:18→17:08)
[2021-08-21 09:32] LABS: BASOPHILS # (AUTO) 0.1 K/uL (0.0-0.2); BASOPHILS % (AUTO) 1.1 % (0.0-2.0); EOSINOPHILS % (AUTO) 6.9 % (0.0-6.0); HEMATOCRIT 23 % (39-51); LYMPHOCYTES # (AUTO) 1.4 K/uL (0.8-4.8); LYMPHOCYTES % (AUTO) 24.7 % (20.0-44.0); MEAN CORPUSCULAR HGB CONC 35 g/dl (31.0-36.0); MEAN CORPUSCULAR VOLUME 93 fL (80-96); MONOCYTES # (AUTO) 0.6 K/uL (0.1-1.30); MONOCYTES % (AUTO) 10.8 % (2.0-12.0); NEUTROPHILS # (AUTO) 3.2 K/uL (1.8-8.9); NEUTROPHILS % (AUTO) 56.5 % (43.0-81.0); PLATELET COUNT (AUTO) 131 K/uL (150-450); WHITE BLOOD COUNT (AUTO) 5.7 K/uL (4.3-11.0)
[2021-08-21] MEDS: POVIDONE-IODINE OINT 28.4 GM TUBE TP SCH ×2 (09:45→17:10)
[2021-08-21 09:55] LABS: CALCIUM, SERUM 7.6 mg/dL (8.5-10.1); CREATININE 5.7 mg/dL (0.6-1.3); MAGNESIUM 1.8 mg/dL (1.8-2.4); PHOSPHORUS 6.8 mg/dL (2.5-4.9); POTASSIUM 3.6 mmol/L (3.5-5.1)
[2021-08-21 13:07] LABS: *ANCA ATYPICAL p-ANCA <1:20 titer (Neg:<1:20); *ANCA CYTOPLASMIC (C-ANCA) <1:20 titer (Neg:<1:20); *ANCA PERINUCLEAR (P-ANCA) <1:20 titer (Neg:<1:20)
[2021-08-21 16:00] VITALS: BP 137/76
[2021-08-21] MEDS: AMLODIPINE BESYLATE 2.5 MG TABLET PO SCH (17:52)
--- NOTE | 2021-08-21 18:30 | NUR ---
MS RN NOTES PATIENT SCHEDULED FOR ULTRASOUND GUIDED BIOPSY TOMORROW. CONSENT FORMS SIGNED, PATIENT A/O X 3 AND ABLE TO UNDERSTAND PROCEDURE TO PROVIDE CONSENT. PT/INR LAB ORDERED TO BE PERFORMED TOMORROW MORNING PRIOR TO PROCEDURE.
--- NOTE | 2021-08-21 18:49 | NUR ---
MS RN CLOSING NOTES PATIENT RESTING IN BED WITH SITTER AT BEDSIDE. A/O X 3, TOLERATING WELL ON ROOM AIR WITH NO SOB OR DISTRESS AT THIS TIME. LIAT MIDLINE # 18 INTACT AND INFUSING SODIUM BICARB @ 50 ML/HR. L AC SL # 20 INTACT AND FLUSHES WELL. CONDOM CATHETER IN PLACE TO CATCH URINE FOR URINALYSIS LAB. SAFETY PRECAUTIONS IN PLACE: BED IN LOWEST LOCKED POSITION, SIDE RAILS UP X 2, CALL LIGHT WITHIN REACH. WILL CONTINUE TO MONITOR.
--- NOTE | 2021-08-21 19:27 | NUR ---
MS RN OPENING NOTE PATIENT RECEIVED ASLEEP IN BED. A/OX3. NO S/S OF DISTRESS, BREATHING SYMMETRICAL ON ROOM AIR. LIAT MIDLINE #18 INTACT AND PATENT. SAFETY MEASURES IN PLACE: BED AT LOWEST POSITION, RAILS UP X2, CALL ROONEY WITHIN REACH. WILL CONTINUE TO FOLLOW PATIENT.
[2021-08-21 20:00] VITALS: BP 156/95
--- NOTE | 2021-08-22 06:27 | NUR ---
MS RN CLOSING NOTE PATIENT ASLEEP IN BED. A/OX3. NO S/S OF DISTRESS, BREATHING SYMMETRICAL ON ROOM AIR. LIAT MIDLINE #18 INTACT AND PATENT, RUNNING W/ NaHCO3 @ 50ML/HR. SAFETY MEASURES IN PLACE: BED AT LOWEST POSITION, RAILS UP X2, CALL ROONEY WITHIN REACH. WILL ENDORSE TO FOLLOWING SHIFT FOR MONTY.
[2021-08-22 06:46] LABS: CALCIUM, SERUM 7.5 mg/dL (8.5-10.1); CREATININE 5.5 mg/dL (0.6-1.3); POTASSIUM 3.8 mmol/L (3.5-5.1)
[2021-08-22] MEDS: Sodium Bicarbonate 150 MEQ in IV D5W 1,000 ML IV SCH ×2 (07:30→07:39)
[2021-08-22 07:42] LABS: BASOPHILS % (AUTO) 0.8 % (0.0-2.0); EOSINOPHILS % (AUTO) 7.2 % (0.0-6.0); HEMATOCRIT 23 % (39-51); HEMOGLOBIN 7.8 g/dL (13.5-17.5); LYMPHOCYTES # (AUTO) 1.4 K/uL (0.8-4.8); LYMPHOCYTES % (AUTO) 23.1 % (20.0-44.0); MEAN CORPUSCULAR HGB CONC 34 g/dl (31.0-36.0); MEAN CORPUSCULAR VOLUME 93 fL (80-96); MONOCYTES # (AUTO) 0.7 K/uL (0.1-1.30); MONOCYTES % (AUTO) 11.9 % (2.0-12.0); NEUTROPHILS # (AUTO) 3.3 K/uL (1.8-8.9); PLATELET COUNT (AUTO) 148 K/uL (150-450); RED BLOOD CELL COUNT(AUTO) 2.46 MIL/uL (4.5-6.0); WHITE BLOOD COUNT (AUTO) 5.9 K/uL (4.3-11.0)
[2021-08-22 08:00] VITALS: BP_SYST 157; BP_DIAS 84; BP_DIAS 89
[2021-08-22] MEDS: NICOTINE PATCH (21MG) 21 MG PATCH.TD24 TD SCH ×2 (09:00→09:25)
[2021-08-22] MEDS: ASCORBIC ACID 500 MG TABLET PO SCH (09:24)
[2021-08-22] MEDS: risperiDONE 1 MG TABLET PO SCH ×3 (09:24→16:45)
[2021-08-22] MEDS: FERROUS SULFATE (325 MG) 325 MG/TAB TABLET PO SCH (09:25)
[2021-08-22] MEDS: BENZTROPINE MESYLATE (1 MG) 1 MG TABLET PO SCH (09:25)
[2021-08-22] MEDS: DIVALPROEX SODIUM 250 MG TABLET.DR PO SCH ×2 (09:25→20:41)
[2021-08-22] MEDS: PHENYTOIN EXTENDED RELEASE 100 MG CAPSULE PO SCH ×3 (09:25→16:46)
[2021-08-22] MEDS: MULTIVIT W/MINERALS 1 TAB TABLET PO SCH (09:25)
[2021-08-22] MEDS: PROSOURCE / PROSTAT (PYXIS) 30 ML UDC PO SCH ×3 (09:26→16:48)
[2021-08-22] MEDS: POVIDONE-IODINE OINT 28.4 GM TUBE TP SCH ×2 (09:27→16:46)
[2021-08-22] MEDS: LEVETIRACETAM (250 MG) 250 MG TABLET PO SCH ×2 (09:32→20:41)
[2021-08-22 14:07] LABS: *ANCANTIMYELOPEROXIDASE (MPO) <9.0 U/mL (0.0-9.0); *ANCANTIPROTEINASE 3 (PR-3) AB <3.5 U/mL (0.0-3.5)
[2021-08-22 16:00] VITALS: BP 154/73
[2021-08-22] MEDS: AMLODIPINE BESYLATE 2.5 MG TABLET PO SCH (17:42)
--- NOTE | 2021-08-22 18:26 | NUR ---
MS CLOSING NOTES PATIENT RESTING IN BED WITH SITTER AT BEDSIDE. A/O X 3. TOLERATING WELL ON ROOM AIR WITH NO SOB OR DISTRESS AT THIS TIME. IV LINE AND ID BANDS REMOVED. PATIENT STABLE AND A/O X 4. LIAT MIDLINE # 18 INTACT AND INFUSING SODIUM BICARB @ 50 ML/HR. L AC SL # 20 INTACT AND FLUSHES WELL. SAFETY PRECAUTIONS IN PLACE: BED IN LOWEST LOCKED POSITION, SIDE RAILS UP X 2, CALL LIGHT WITHIN REACH. WILL CONTINUE TO MONITOR.
--- NOTE | 2021-08-22 19:22 | NUR ---
MS RN OPENING NOTE PATIENT RECEIVED ASLEEP IN BED. A/OX3. NO S/S OF DISTRESS, BREATHING SYMMETRICAL, ON ROOM AIR. LIAT MIDLINE #20 INTACT AND PATENT W/ NaHCO3 50ML/HR. SITTER PRESENT. SAFETY MEASURES IN PLACE: BED AT LOWEST POSITION, RAILS UP X2, CALL ROONEY WITHIN REACH. WILL CONTINUE TO MONITOR PATIENT.
[2021-08-22 20:00] VITALS: BP 151/95
--- NOTE | 2021-08-22 22:30 | NUR ---
MEDICAL I D SALES NOTE BEING FLOATED TO SUBAC[employer], AND HAVE TRANSFERRED PATIENT TO DEJA BOND, FOR MONTY.
--- NOTE | 2021-08-22 22:40 | NUR ---
Change of care report received. Patient is A&Ox3, sleeping but easy to wake. Patient states he would like to get some rest. In no signs of distress. Sitter at bedside.
--- NOTE | 2021-08-23 06:18 | NUR ---
RN CLOSING NOTES Patient is A&Ox3. VSS. no signs of distress currently. No overnight episodes. Patient slept well but is easy to wake. Wants to be left alone but is cooperative with care when approached nicely and when care is provided in clusters. Patient is incontinent urine is yellow with no odor. Sodium bicarb currently infusing to LIAT midline at 50ml/hr.
[2021-08-23] MEDS: Sodium Bicarbonate 150 MEQ in IV D5W 1,000 ML IV SCH (06:46)
--- NOTE | 2021-08-23 07:22 | NUR ---
RN OPENING NOTES RECEIVED PATIENT IN BED, AWAKE, VERBALLY RESPONSIVE, NO SIGNS OF ACUTE DISTRESS NOTED. ON ROOM AIR, TOLERATING WELL, NO SOB NOTED. WITH IV ACCESS ON RIGHT UPPER ARM MIDLINE, INTACT AND PATENT, WITH SODIUM BICARBONATE @50 ML/HR RUNNING. DENIES ANY PAIN OR DISCOMFORT AT THIS TIME. SAFETY MEAUSRES IN PLACE, BED IN LOWEST LOCKED POSITION, SR UP, CALL LIGHT PLACED WITHIN EASY REACH. SITTER AT BESIDE. WILL CONTINUE TO MONITOR.
[2021-08-23] MEDS: PHENYTOIN EXTENDED RELEASE 100 MG CAPSULE PO SCH ×3 (08:40→16:39)
[2021-08-23] MEDS: DIVALPROEX SODIUM 250 MG TABLET.DR PO SCH ×2 (08:40→21:36)
[2021-08-23] MEDS: risperiDONE 1 MG TABLET PO SCH ×3 (08:41→16:39)
[2021-08-23] MEDS: ASCORBIC ACID 500 MG TABLET PO SCH (08:41)
[2021-08-23] MEDS: MULTIVIT W/MINERALS 1 TAB TABLET PO SCH (08:41)
[2021-08-23] MEDS: LEVETIRACETAM (250 MG) 250 MG TABLET PO SCH ×2 (08:41→21:36)
[2021-08-23] MEDS: BENZTROPINE MESYLATE (1 MG) 1 MG TABLET PO SCH (08:41)
[2021-08-23] MEDS: PROSOURCE / PROSTAT (PYXIS) 30 ML UDC PO SCH ×3 (08:41→16:41)
[2021-08-23] MEDS: NICOTINE PATCH (21MG) 21 MG PATCH.TD24 TD SCH (08:41)
[2021-08-23] MEDS: FERROUS SULFATE (325 MG) 325 MG/TAB TABLET PO SCH (08:41)
[2021-08-23] MEDS: POVIDONE-IODINE OINT 28.4 GM TUBE TP SCH ×2 (08:57→16:39)
[2021-08-23 11:03] LABS: BASOPHILS # (AUTO) 0.1 K/uL (0.0-0.2); BASOPHILS % (AUTO) 0.9 % (0.0-2.0); EOSINOPHILS % (AUTO) 3.5 % (0.0-6.0); HEMATOCRIT 25 % (39-51); HEMOGLOBIN 8.6 g/dL (13.5-17.5); LYMPHOCYTES # (AUTO) 1.1 K/uL (0.8-4.8); LYMPHOCYTES % (AUTO) 13.7 % (20.0-44.0); MEAN CORPUSCULAR HGB CONC 35 g/dl (31.0-36.0); MEAN CORPUSCULAR VOLUME 92 fL (80-96); MONOCYTES # (AUTO) 0.9 K/uL (0.1-1.30); MONOCYTES % (AUTO) 11.2 % (2.0-12.0); NEUTROPHILS # (AUTO) 5.8 K/uL (1.8-8.9); NEUTROPHILS % (AUTO) 70.7 % (43.0-81.0); PLATELET COUNT (AUTO) 129 K/uL (150-450); WHITE BLOOD COUNT (AUTO) 8.1 K/uL (4.3-11.0)
[2021-08-23 11:31] LABS: CALCIUM, SERUM 8.6 mg/dL (8.5-10.1); CREATININE 5.9 mg/dL (0.6-1.3); POTASSIUM 3.7 mmol/L (3.5-5.1)
[2021-08-23] MEDS: AMLODIPINE BESYLATE 2.5 MG TABLET PO SCH (17:20)
--- NOTE | 2021-08-23 18:48 | NUR ---
RN CLOSING NOTES PATIENT RESTING IN BED, NO SIGNS OF ACUTE DISTRESS NOTED. REMAINS ON ROOM AIR, TOLERATING WELL, NO SOB NOTED, BREATHING EVEN AND UNLABORED. IV ACCESS ON RIGHT UPPER ARM MIDLINE, INTACT AND PATENT, WITH SODIUM BICARBONATE @50 ML/HR RUNNING. NO C/O PAIN OR DISCOMFORT AT THIS TIME. ALL DUE MEDS GIVEN, TAKEN WELL. SAFETY MEASURES IN PLACE, BED IN LOWEST LOCKED POSITION, SR UP, CALL LIGHT PLACED WITHIN EASY REACH. SITTER AT BESIDE. WILL ENDORSE TO NEXT SHIFT FOR CONTINUITY OF CARE.
--- NOTE | 2021-08-23 19:57 | NUR ---
MS RN OPENING NOTE PATIENT RECEIVED ASLEEP IN BED. A/OX3. NO S/S OF DISTRESS, BREATHING SYMMETRICAL ON ROOM AIR. LIAT WARREN #18 INTACT AND PATENT. SAFETY MEASURES IN PLACE: BED AT LOWEST POSITION, RAILS UP X2, CALL ROONEY WITHIN REACH. WILL CONTINUE TO MONITOR PATIENT.
[2021-08-24] MEDS: Sodium Bicarbonate 150 MEQ in IV D5W 1,000 ML IV SCH (05:38)
--- NOTE | 2021-08-24 06:31 | NUR ---
MS RN CLOSING NOTE PATIENT IS ASLEEP IN BED. A/OX3. NO S/S OF DISTRESS, BREATHING UNLABORED ON ROOM AIR. LIAT MIDLINE #18 INTACT AND PATENT W/ NaHCO3 @50ML/HR. SAFETY MEASURES IN PLACE: BED AT LOWEST POSITION, RAILS UP X3, CALL ROONEY WITHIN REACH. WILL ENDORSE TO FOLLOWING SHIFT FOR MONTY.
--- NOTE | 2021-08-24 06:45 | NUR ---
RN NOTE WAS NOTIFIED BY SITTER PATIENT'S MIDLINE WAS EITHER PULLED OUT OR WAS COMPLETELY DISLODGED. ENTIRE CATH WAS INTACT AND PROPERLY DISPOSED OF, NO ACTIVE BLEEDING NOTED. PATIENT IS O/W STABLE. ALTHOUGH PRESSURE BANDAGE WAS TO BE APPLIED FOR SAFETY, PATIENT DECLINED AND WANTED ME TO LEAVE. CHARGE NURSE, BISI, NOTIFIED. NURSE MASTER PRINTER NOTIFIED.
--- NOTE | 2021-08-24 07:15 | NUR ---
RN OPENING NOTES RECEIVED PATIENT IN BED, AWAKE, NO SIGNS OF ACUTE DISTRESS NOTED. STABLE ON ROOM AIR. BREATHING EVEN AND UNLABORED, NO SOB NOTED. DENIES ANY PAIN OR DISCOMFORT AT THIS TIME. NO IV ACCESS AT THIS TIME. PER NIGHT NURSE IT WAS PULLED OUT. MIDLINE INSERTION WAS ORDERED. SAFETY MEASURE MAINTAINED, BED IN LOWEST LOCKED POSITION, SIDE RAILS UP, CALL LIGHT PLACED WITHIN EASY REACH. WILL CONTINUE TO MONITOR.
[2021-08-24] MEDS: BENZTROPINE MESYLATE (1 MG) 1 MG TABLET PO SCH (08:22)
[2021-08-24] MEDS: DIVALPROEX SODIUM 250 MG TABLET.DR PO SCH ×2 (08:22→21:06)
[2021-08-24] MEDS: NICOTINE PATCH (21MG) 21 MG PATCH.TD24 TD SCH (08:22)
[2021-08-24] MEDS: PROSOURCE / PROSTAT (PYXIS) 30 ML UDC PO SCH ×3 (08:23→17:00)
[2021-08-24] MEDS: ASCORBIC ACID 500 MG TABLET PO SCH (08:23)
[2021-08-24] MEDS: FERROUS SULFATE (325 MG) 325 MG/TAB TABLET PO SCH (08:23)
[2021-08-24] MEDS: MULTIVIT W/MINERALS 1 TAB TABLET PO SCH (08:23)
[2021-08-24] MEDS: LEVETIRACETAM (250 MG) 250 MG TABLET PO SCH ×2 (08:23→21:06)
[2021-08-24] MEDS: risperiDONE 1 MG TABLET PO SCH ×3 (08:23→17:05)
[2021-08-24] MEDS: PHENYTOIN EXTENDED RELEASE 100 MG CAPSULE PO SCH ×3 (08:23→17:05)
[2021-08-24] MEDS: POVIDONE-IODINE OINT 28.4 GM TUBE TP SCH ×2 (08:24→17:06)
[2021-08-24 08:26] VITALS: BP 159/76
--- NOTE | 2021-08-24 08:30 | NUR ---
RN NOTES NEW MIDLINE INSERTED ON LEFT UPPER ARM BY PICC NURSE
[2021-08-24 09:58] LABS: BASOPHILS # (AUTO) 0.1 K/uL (0.0-0.2); BASOPHILS % (AUTO) 0.8 % (0.0-2.0); EOSINOPHILS % (AUTO) 2.4 % (0.0-6.0); HEMATOCRIT 22 % (39-51); HEMOGLOBIN 7.4 g/dL (13.5-17.5); LYMPHOCYTES # (AUTO) 0.8 K/uL (0.8-4.8); LYMPHOCYTES % (AUTO) 12.5 % (20.0-44.0); MEAN CORPUSCULAR HGB CONC 34 g/dl (31.0-36.0); MEAN CORPUSCULAR VOLUME 94 fL (80-96); MONOCYTES # (AUTO) 0.6 K/uL (0.1-1.30); MONOCYTES % (AUTO) 9.6 % (2.0-12.0); NEUTROPHILS # (AUTO) 4.8 K/uL (1.8-8.9); NEUTROPHILS % (AUTO) 74.7 % (43.0-81.0); PLATELET COUNT (AUTO) 114 K/uL (150-450); RED BLOOD CELL COUNT(AUTO) 2.34 MIL/uL (4.5-6.0); WHITE BLOOD COUNT (AUTO) 6.4 K/uL (4.3-11.0)
[2021-08-24 10:31] LABS: BILIRUBIN,TOTAL 0.1 mg/dL (0.2-1.0); CALCIUM, SERUM 6.9 mg/dL (8.5-10.1); CREATININE 5.7 mg/dL (0.6-1.3); MAGNESIUM 1.7 mg/dL (1.8-2.4); PHOSPHORUS 6.3 mg/dL (2.5-4.9); POTASSIUM 3.5 mmol/L (3.5-5.1); TOTAL PROTEIN, SERUM 3.9 g/dL (6.4-8.2)
[2021-08-24 10:52] LABS: ALBUMIN 1.1 g/dL (3.4-5.0)
[2021-08-24] MEDS: SEVELAMER CARBONATE 800 MG TABLET PO SCH ×2 (13:02→17:05)
[2021-08-24] MEDS ORDERED: MAGNESIUM OXIDE 400 MG TABLET PO ONE (16:00)
[2021-08-24 16:39] VITALS: BP 167/68
[2021-08-24] MEDS: AMLODIPINE BESYLATE 2.5 MG TABLET PO SCH (17:06)
--- NOTE | 2021-08-24 18:52 | NUR ---
RN CLOSING NOTES PATIENT RESTING IN BED, NO SIGNS OF ACUTE DISTRESS NOTED. REMAINS ON ROOM AIR, TOLERATING WELL, NO SOB NOTED, BREATHING EVEN AND UNLABORED. IV ACCESS ON LEFT UPPER ARM MIDLINE #18G, INTACT AND PATENT, WITH SODIUM BICARBONATE @50 ML/HR RUNNING. DENIES ANY PAIN OR DISCOMFORT AT THIS TIME. ALL DUE MEDS GIVEN, TAKEN WELL. SAFETY MEASURES IN PLACE, BED IN LOWEST LOCKED POSITION, SR UP, CALL LIGHT PLACED WITHIN EASY REACH. WILL ENDORSE TO NEXT SHIFT FOR CONTINUITY OF CARE.
--- NOTE | 2021-08-24 19:35 | NUR ---
RN NOTES RECEIVED PATIENT AWAKE ON BE, A/OX2,NOTICED HAS SPECIAL NEEDS , A/OX2-3, DENIES PAIN, NO SOB, CALL LLIGHT WITHIN REACH, SIDERAILSUPX2, WILL CONTINUE TO MONITOR
[2021-08-24 20:00] VITALS: BP 148/66
--- NOTE | 2021-08-24 23:00 | NUR ---
RN NOTES PAIENT WAS KEEP ON SCREAMING- SEROQUEL 50MG PO GIVEN ORDERED, V/S STABLE
[2021-08-25] MEDS: Sodium Bicarbonate 150 MEQ in IV D5W 1,000 ML IV SCH (03:21)
--- NOTE | 2021-08-25 06:17 | NUR ---
RN NOTES SLEEPING BUT AROUSABLE, DENIES PAIN, NO SOB, MORNING CARE RENDERED, SIDERAILSUPX2, PT. NEEDS ATTENDED
[2021-08-25 06:50] LABS: BASOPHILS # (AUTO) 0.1 K/uL (0.0-0.2); BASOPHILS % (AUTO) 1.1 % (0.0-2.0); EOSINOPHILS % (AUTO) 4.1 % (0.0-6.0); HEMATOCRIT 23 % (39-51); HEMOGLOBIN 8.1 g/dL (13.5-17.5); LYMPHOCYTES # (AUTO) 1.3 K/uL (0.8-4.8); MEAN CORPUSCULAR HGB CONC 35 g/dl (31.0-36.0); MEAN CORPUSCULAR VOLUME 93 fL (80-96); MONOCYTES # (AUTO) 0.8 K/uL (0.1-1.30); MONOCYTES % (AUTO) 11.2 % (2.0-12.0); NEUTROPHILS # (AUTO) 4.4 K/uL (1.8-8.9); NEUTROPHILS % (AUTO) 64.6 % (43.0-81.0); PLATELET COUNT (AUTO) 111 K/uL (150-450); WHITE BLOOD COUNT (AUTO) 6.8 K/uL (4.3-11.0)
[2021-08-25 07:35] LABS: CALCIUM, SERUM 7.6 mg/dL (8.5-10.1); CREATININE 6.3 mg/dL (0.6-1.3); POTASSIUM 3.6 mmol/L (3.5-5.1)
--- NOTE | 2021-08-25 07:51 | NUR ---
RN OPENING NOTE RECEIVED PATIENT IN BED, AWAKE, NO SIGNS OF ACUTE DISTRESS NOTED. STABLE ON ROOM AIR. BREATHING EVEN AND NON-LABORED, NO SOB NOTED. DENIES ANY PAIN OR DISCOMFORT AT THIS TIME. VIVIAN MIDLINE INTACT. SAFETY MEASURE MAINTAINED, BED IN LOWEST LOCKED POSITION, SIDE RAILS UP, CALL LIGHT PLACED WITHIN EASY REACH. WILL CONTINUE TO MONITOR.
[2021-08-25] MEDS: PHENYTOIN EXTENDED RELEASE 100 MG CAPSULE PO SCH ×3 (08:28→16:54)
[2021-08-25] MEDS: DIVALPROEX SODIUM 250 MG TABLET.DR PO SCH ×2 (08:28→20:36)
[2021-08-25] MEDS: ASCORBIC ACID 500 MG TABLET PO SCH (08:29)
[2021-08-25] MEDS: risperiDONE 1 MG TABLET PO SCH ×3 (08:29→16:54)
[2021-08-25] MEDS: SEVELAMER CARBONATE 800 MG TABLET PO SCH ×3 (08:29→18:14)
[2021-08-25] MEDS: LEVETIRACETAM (250 MG) 250 MG TABLET PO SCH ×2 (08:29→20:39)
[2021-08-25] MEDS: BENZTROPINE MESYLATE (1 MG) 1 MG TABLET PO SCH (08:29)
[2021-08-25] MEDS: CALCITRIOL 0.25 MCG CAPSULE PO SCH (08:29)
[2021-08-25] MEDS: MULTIVIT W/MINERALS 1 TAB TABLET PO SCH (08:29)
[2021-08-25] MEDS: FERROUS SULFATE (325 MG) 325 MG/TAB TABLET PO SCH (08:30)
[2021-08-25] MEDS: NICOTINE PATCH (21MG) 21 MG PATCH.TD24 TD SCH (08:30)
[2021-08-25] MEDS: POVIDONE-IODINE OINT 28.4 GM TUBE TP SCH ×2 (08:45→16:55)
[2021-08-25] MEDS: PROSOURCE / PROSTAT (PYXIS) 30 ML UDC PO SCH ×3 (08:45→16:54)
[2021-08-25] MEDS ORDERED: FUROSEMIDE 40 MG/4 ML VIAL IV SCH (10:30)
--- NOTE | 2021-08-25 10:31 | NUR ---
RN NOTE- DR LACEY AT BEDSIDE. ORDERED IVF STOPPED, LASIX 40 MG IVP X ONE DOSE, CXR STAT. STATED WILL HAVE TRAE NGUYEN PUT LINE IN FOR HD AND WILL HAVE PT DIALYSIS SCHEDULED. COMPLIED
[2021-08-25] MEDS: AMLODIPINE BESYLATE 2.5 MG TABLET PO SCH (18:14)
--- NOTE | 2021-08-25 18:54 | NUR ---
RN CLOSING NOTE- PATIENT IN BED, ASLEEP BUT EASILY AWAKENED. , NO SIGNS OF ACUTE DISTRESS NOTED. STABLE ON ROOM AIR. BREATHING EVEN AND NON-LABORED, NO SOB NOTED AT PRESENT THOUGH EARLIER TODAY, PT HAD CONGESTION AND DYSPNEA. IV LASIX 40 MG ADMINISTERED. STAT CXR SHOWED INFILTRATES. . DENIES ANY PAIN OR DISCOMFORT AT THIS TIME. VIVIAN MIDLINE INTACT. FOR BIOPSY TOMORROW AT NOON. NPO AFTER MN. SAFETY MEASURES MAINTAINED, BED IN LOWEST LOCKED POSITION, SIDE RAILS UP, CALL LIGHT PLACED WITHIN EASY REACH. WILL CONTINUE TO MONITOR.
[2021-08-25 20:00] VITALS: BP 179/82
--- NOTE | 2021-08-25 21:30 | NUR ---
MS RN NOTE PATIENT IS SLEEPING AT THIS TIME, CALM AND RELAXED. WILL CONTINUE TO MONITOR FOR ANY CHANGE OF CONDITION.
--- NOTE | 2021-08-26 05:50 | NUR ---
MS RN NOTE: NPO PATIENT IS NPO AFTER MIDNIGHT DUE TO SCHEDULED CT NEEDLE BIOPSY (RENAL) AT 12 NOON.
--- NOTE | 2021-08-26 05:58 | NUR ---
MS RN NOTE: REFUSED AM LABS PATIENT REFUSED AM LABS X 3 DESPITE OF RISKS AND BENEFITS EXPLANATIONS. PATIENT CONTINUED TO REFUSE. PER [employer], WILL TRY AGAIN LATER.
--- NOTE | 2021-08-26 07:20 | NUR ---
MS RN OPENING NOTE RECEIVED PATIENT IN BED, ASLEEP BUT EASILY AWAKENED. PATIENT IS ALERT AND ORIENTED X 1-2. PATIENT ON ROOM AIR WITH EQUAL AND UNLABORED BREATHING, NO SIGNS OF ACUTE DISTRESS NOTED. HE DENIES ANY PAIN OR DISCOMFORT AT THIS TIME. WITH [facility]IVIAN MIDLINE PATENT AND INTACT. PATIENT KEPT ON NPO FOR BIOPSY TOMORROW. SAFETY MEASURES MAINTAINED WITH , BED IN LOWEST LOCKED POSITION, SIDE RAILS UP AND CALL LIGHT WITHIN REACH AT ALL TIMES. WILL CONTINUE TO MONITOR PATIENT.
[2021-08-26 08:00] VITALS: BP 152/74
[2021-08-26] MEDS: CALCITRIOL 0.25 MCG CAPSULE PO SCH (09:45)
[2021-08-26] MEDS: NICOTINE PATCH (21MG) 21 MG PATCH.TD24 TD SCH (09:45)
[2021-08-26] MEDS: MULTIVIT W/MINERALS 1 TAB TABLET PO SCH (09:46)
[2021-08-26] MEDS: ASCORBIC ACID 500 MG TABLET PO SCH (09:46)
[2021-08-26] MEDS: risperiDONE 1 MG TABLET PO SCH ×3 (09:47→18:06)
[2021-08-26] MEDS: LEVETIRACETAM (250 MG) 250 MG TABLET PO SCH ×2 (09:47→21:26)
[2021-08-26] MEDS: DIVALPROEX SODIUM 250 MG TABLET.DR PO SCH ×2 (09:47→21:26)
[2021-08-26] MEDS: SEVELAMER CARBONATE 800 MG TABLET PO SCH ×3 (09:47→18:06)
[2021-08-26] MEDS: PHENYTOIN EXTENDED RELEASE 100 MG CAPSULE PO SCH ×3 (09:48→18:06)
[2021-08-26] MEDS: FERROUS SULFATE (325 MG) 325 MG/TAB TABLET PO SCH (09:48)
[2021-08-26] MEDS: BENZTROPINE MESYLATE (1 MG) 1 MG TABLET PO SCH (09:48)
[2021-08-26] MEDS: PROSOURCE / PROSTAT (PYXIS) 30 ML UDC PO SCH ×3 (10:06→18:06)
--- NOTE | 2021-08-26 10:10 | NUR ---
MS RN NOTE PATIENT REFUSED BLOOD DRAW AGAIN. HE ALSO REFUSED THE PROCEDURE FOR BIOPSY TODAY BACAUSE HE WANTS TO EAT. SPOKE WITH PATIENT'S TEMPORARY DIFFUSER OPERATOR DELIA GOSS WHO IS FROM [facility]. PATIENT UNDER CONSERVATORSHIP OF [place] BUT PATIENT STILL HAVE THE AUTHORITY TO MAKE MEDICAL DECISIONS. DELIA WILL CALL ME AGAIN TO GIVE THE PHONE NUMBER TO [facility]. PATIENT AGREED FOR THE PROCEDURE OF HD ACCESS PLACEMENT AND HEMODIALYSIS. CONSENTS SIGNED AND ATTACHED TO CHART.
[2021-08-26] MEDS: POVIDONE-IODINE OINT 28.4 GM TUBE TP SCH ×2 (13:34→18:07)
[2021-08-26 14:42] LABS: BASOPHILS # (AUTO) 0.1 K/uL (0.0-0.2); BASOPHILS % (AUTO) 1.1 % (0.0-2.0); EOSINOPHILS % (AUTO) 5.3 % (0.0-6.0); HEMATOCRIT 23 % (39-51); HEMOGLOBIN 7.9 g/dL (13.5-17.5); LYMPHOCYTES # (AUTO) 1.4 K/uL (0.8-4.8); LYMPHOCYTES % (AUTO) 24.1 % (20.0-44.0); MEAN CORPUSCULAR HGB CONC 34 g/dl (31.0-36.0); MEAN CORPUSCULAR VOLUME 92 fL (80-96); MONOCYTES # (AUTO) 0.6 K/uL (0.1-1.30); MONOCYTES % (AUTO) 11.2 % (2.0-12.0); NEUTROPHILS # (AUTO) 3.3 K/uL (1.8-8.9); NEUTROPHILS % (AUTO) 58.3 % (43.0-81.0); PLATELET COUNT (AUTO) 130 K/uL (150-450); RED BLOOD CELL COUNT(AUTO) 2.52 MIL/uL (4.5-6.0); WHITE BLOOD COUNT (AUTO) 5.6 K/uL (4.3-11.0)
[2021-08-26 15:02] LABS: BILIRUBIN,TOTAL 0.1 mg/dL (0.2-1.0); CALCIUM, SERUM 7.6 mg/dL (8.5-10.1); CREATININE 6.5 mg/dL (0.6-1.3); PHOSPHORUS 6.5 mg/dL (2.5-4.9); POTASSIUM 3.6 mmol/L (3.5-5.1); TOTAL PROTEIN, SERUM 4.3 g/dL (6.4-8.2)
[2021-08-26 15:04] LABS: ALBUMIN 1.2 g/dL (3.4-5.0)
[2021-08-26 16:00] VITALS: BP 140/78
--- NOTE | 2021-08-26 16:10 | NUR ---
MS RN NOTE PATIENT SEEN BY DR. LACEY AND DR. NGUYEN. DR. NGUYEN INSERTED RIGHT GROIN AREA PERMACATH FOR HD ACCESS. PROCEDURE TOLERATED WELL. IN STABLE CONDITION. WILL CONTINUE TO MONITOR PATIENT.
[2021-08-26] MEDS ORDERED: ALBUMIN 25% 25 GM in PREMIX 1 EA IV PRN (17:30)
[2021-08-26] MEDS: AMLODIPINE BESYLATE 2.5 MG TABLET PO SCH (18:06)
--- NOTE | 2021-08-26 18:52 | NUR ---
MS RN CLOSING NOTE PATIENT IN BED, ASLEEP BUT EASILY AWAKENED. PATIENT IS ALERT AND ORIENTED X 1-2. PATIENT ON ROOM AIR WITH EQUAL AND UNLABORED BREATHING, NO SIGNS OF ACUTE DISTRESS NOTED. HE DENIES ANY PAIN OR DISCOMFORT AT THIS TIME. WITH [employer] PATENT AND INTACT. PATIENT KEPT ON NPO FOR BIOPSY TOMORROW. SAFETY MEASURES MAINTAINED WITH , BED IN LOWEST LOCKED POSITION, SIDE RAILS UP AND CALL LIGHT WITHIN REACH AT ALL TIMES. WILL ENDORSE TO NEXT SHIFT FOR CONTINUITY OF CARE.
--- NOTE | 2021-08-26 19:30 | NUR ---
MS RN OPENING NOTES: RECEIVED PATIENT IN BED, COVERED HIS HEAD WITH THE BLANKET, AWAKE. NO S/S OF DISTRESS NOTED. NO COMPLAIN OF PAIN. CALL LIGHT WITHIN REACH. BED ALARM ON. BED IN LOWEST AND LOCKED POSITION.
[2021-08-26 20:00] VITALS: BP 138/70
--- NOTE | 2021-08-27 00:24 | NUR ---
RN MONTY NOTE PATIENT RECEIVED FROM SHAHID SHORT. PATIENT SLEEPING, NOT IN ANY APPARENT DISTRESS. WILL CONTINUE TO MONITOR PATIENT CLOSELY
--- NOTE | 2021-08-27 00:33 | NUR ---
REPORTS GIVEN TO DEJA JEWELL FOR MONTY.
--- NOTE | 2021-08-27 03:15 | NUR ---
ativan 2 mg po given with small sip of water d/t patient screaming continuously
--- NOTE | 2021-08-27 06:49 | NUR ---
RN CLOSING NOTE PATIENT IN BED SLEEPING, PATIENT IS ABLE TO MAKE NEEDS KNOWN, A/O X 2-3 AT THIS TIME. PATIENT SIGNED CONSENT FOR ANESTHESIA FOR BIOPSY. PATIENT HAS A VIVIAN MIDLINE PATENT AND INTACT, SALINE LOCKED ONLY. R FEMORAL PERMACATH PRESENT. PATIENT NOT IN ANY APPARENT DISTRESS. NPO STATUS MAINTAINED. ALL NEEDS MET AND ATTENDED. ALL ORDERS CARRIED OUT. SAFETY MEASURES IMPLEMENTED. WILL ENDORSE TO DAY SHIFT NURSE FOR MONTY.
--- NOTE | 2021-08-27 07:45 | NUR ---
RN OPENING NOTES RECEIVED PATIENT IN BED SLEEPING, ABLE TO BE WAKEN, A/O X 2-3 AT THIS TIME. PATIENT IS ON RA WITH NO S/SX OF RESPIRATORY DISTRESS NOTED. PATIENT IS AWARE OF PLAN FOR THE DAY, ALL CONSENTS FOR BIOPSY PROCEDURE ARE SIGNED. PATIENT HAS A L UA MIDLINE INTACT AND PATENT. R FEMORAL PERMA-CATH INTACT. PATIENT REMAINS NPO EXCEPT MEDS. SAFETY MEASURES IN PLACE: BED IN LOWEST POSITION, WHEELS LOCKED, SIDE RAILS UP X2, CALL LIGHT WITHIN REACH. WILL CONTINUE TO MONITOR PATIENT.
[2021-08-27 08:16] VITALS: BP 158/74
[2021-08-27] MEDS: SEVELAMER CARBONATE 800 MG TABLET PO SCH ×3 (08:46→17:49)
[2021-08-27] MEDS: CALCITRIOL 0.25 MCG CAPSULE PO SCH (08:46)
[2021-08-27] MEDS: risperiDONE 1 MG TABLET PO SCH ×3 (08:46→17:49)
[2021-08-27] MEDS: BENZTROPINE MESYLATE (1 MG) 1 MG TABLET PO SCH (08:46)
[2021-08-27] MEDS: DIVALPROEX SODIUM 250 MG TABLET.DR PO SCH ×2 (08:46→21:36)
[2021-08-27] MEDS: PHENYTOIN EXTENDED RELEASE 100 MG CAPSULE PO SCH ×3 (08:46→17:49)
[2021-08-27] MEDS: MULTIVIT W/MINERALS 1 TAB TABLET PO SCH (08:46)
[2021-08-27] MEDS: ASCORBIC ACID 500 MG TABLET PO SCH (08:47)
[2021-08-27] MEDS: LEVETIRACETAM (250 MG) 250 MG TABLET PO SCH ×2 (08:47→21:34)
[2021-08-27] MEDS: NICOTINE PATCH (21MG) 21 MG PATCH.TD24 TD SCH (08:47)
[2021-08-27] MEDS: FERROUS SULFATE (325 MG) 325 MG/TAB TABLET PO SCH (08:47)
[2021-08-27] MEDS: PROSOURCE / PROSTAT (PYXIS) 30 ML UDC PO SCH ×3 (09:03→17:50)
[2021-08-27] MEDS: POVIDONE-IODINE OINT 28.4 GM TUBE TP SCH ×2 (09:03→17:50)
[2021-08-27 12:18] LABS: BILIRUBIN,TOTAL 0.1 mg/dL (0.2-1.0); CALCIUM, SERUM 7.6 mg/dL (8.5-10.1); CREATININE 5.9 mg/dL (0.6-1.3); PHOSPHORUS 5.7 mg/dL (2.5-4.9); POTASSIUM 3.7 mmol/L (3.5-5.1); TOTAL PROTEIN, SERUM 4.2 g/dL (6.4-8.2)
[2021-08-27 12:22] LABS: ALBUMIN 1.4 g/dL (3.4-5.0)
--- NOTE | 2021-08-27 13:09 | NUR ---
second attempt for renal biops, patient refused.
--- NOTE | 2021-08-27 13:20 | NUR ---
RN NOTES RECEIVED CRITICAL LAB VALUES. HEMOGLOBIN 7.0, HEMATOCRIT 20, AND ALBUMIN 1.4. DR. CAMACHO WAS INFORMED. A REPEAT DRAW WAS REQUESTED AND NO OTHER NEW ORDERS GIVEN. WILL CONTINUE TO MONITOR PATIENT.
[2021-08-27 13:44] LABS: BASOPHILS # (AUTO) 0.1 K/uL (0.0-0.2); BASOPHILS % (AUTO) 1.3 % (0.0-2.0); EOSINOPHILS % (AUTO) 6.6 % (0.0-6.0); LYMPHOCYTES # (AUTO) 1.3 K/uL (0.8-4.8); LYMPHOCYTES % (AUTO) 24.3 % (20.0-44.0); MEAN CORPUSCULAR HGB CONC 34 g/dl (31.0-36.0); MEAN CORPUSCULAR VOLUME 93 fL (80-96); MONOCYTES # (AUTO) 0.5 K/uL (0.1-1.30); NEUTROPHILS # (AUTO) 3.1 K/uL (1.8-8.9); NEUTROPHILS % (AUTO) 57.8 % (43.0-81.0); PLATELET COUNT (AUTO) 132 K/uL (150-450); RED BLOOD CELL COUNT(AUTO) 2.15 MIL/uL (4.5-6.0); WHITE BLOOD COUNT (AUTO) 5.3 K/uL (4.3-11.0)
[2021-08-27 13:48] LABS: HEMATOCRIT 20 % (39-51); HEMOGLOBIN 6.9 g/dL (13.5-17.5)
[2021-08-27 14:59] LABS: LYMPHOCYTES % (MANUAL) 25 % (16-48); NEUTROPHILS % (MANUAL) 60 (42-76)
[2021-08-27 15:00] LABS: EOSINOPHILS % (MANUAL) 5 % (0-4); MONOCYTES % (MANUAL) 10 % (0-11.0)
[2021-08-27 16:11] VITALS: BP 139/73
[2021-08-27] MEDS: AMLODIPINE BESYLATE 2.5 MG TABLET PO SCH (17:49)
--- NOTE | 2021-08-27 18:45 | NUR ---
RN CLOSING NOTES PATIENT IS IN BED RECEIVING HD AT THIS TIME. A/O X1-2. PATIENT IS ON RA WITH NO S/SX OF RESPIRATORY DISTRESS NOTED. PATIENT RESPONDS TO QUESTIONS WITH SHORT ANSWERS, UNABLE TO CARRY ON CONTINUOUS CONVERSATION. PATIENT IS NON COMPLIANT WITH NPO STATUS FOR ORDERED PROCEDURES. PATIENT SHOUTS AND AGITATION INCREASES IF FOOD IS NOT GIVEN RIGHT AWAY. PATIENT HAS A L UA MIDLINE INTACT AND PATENT. R FEMORAL PERMA-CATH INTACT. SAFETY MEASURES IN PLACE: BED IN LOWEST POSITION, WHEELS LOCKED, SIDE RAILS UP X2, CALL LIGHT WITHIN REACH. WILL ENDORSE TO BOAT HAND NURSE FOR MONTY
--- NOTE | 2021-08-27 19:41 | NUR ---
MS RN OPENING NOTES RECEIVED PATIENT IN BED AWAKE RECEIVING HD AT BEDSIDE. A/O X 2-3. PATIENT STABLE ON RA. NO SOB OR S/S OF RESPIRATORY DISTRESS. IV ACCESS VIVIAN MIDLINE SL, INTACT AND PATENT. R FEMORAL PERMA-CATH INTACT. L HEEL DRESSING C/D/I. SAFETY PRECAUTIONS IN PLACE. BED IN LOWEST LOCKED POSITION, HOB ELEVATED, SIDE RAILS UP X3, AND CALL LIGHT AND TABLE WITHIN REACH. WILL CONTINUE WITH PLAN OF CARE.
[2021-08-27 20:00] VITALS: BP 155/91
[2021-08-28] VITALS (7 sets, daily range): BP systolic 136–175; BP diastolic 70–88
--- NOTE | 2021-08-28 06:50 | NUR ---
MS RN CLOSING NOTES PATIENT IN BED AWAKE RECEIVING HD AT BEDSIDE. A/O X 2-3. PATIENT STABLE ON RA. NO SOB OR S/S OF RESPIRATORY DISTRESS. IV ACCESS VIVIAN MIDLINE SL, INTACT AND PATENT. R FEMORAL PERMA-CATH INTACT. L HEEL DRESSING C/D/I. ALL NEEDS MET AT THIS TIME. PT KEPT NPO SINCE MIDNIGHT. SAFETY PRECAUTIONS IN PLACE AT ALL TIMES. BED IN LOWEST LOCKED POSITION, HOB ELEVATED, SIDE RAILS UP X3, AND CALL LIGHT AND TABLE WITHIN REACH. WILL ENDORSE TO ONCOMING NURSE FOR MONTY.
--- NOTE | 2021-08-28 07:23 | NUR ---
MS RN OPENING NOTES RECEIVED PATIENT IN BED ASLEEP, EASILY AWAKENS. PT IS A/O X 2-3. VERBALLY RESPONSIVE WITH NO COMPLAINTS VOICED AT THIS TIME. PT ON NPO EXCEPT MEDS AT THIS TIME. ON ROOM AIR, TOLERATING WELL WITH NO ACUTE S/S OF RESPIRATORY DISTRESS NOTED. VIVIAN MIDLINE SL, INTACT AND PATENT. PT WITH RIGHT FEMORAL HD-CATH WITH DRESSING DRY AND INTACT. SAFETY PRECAUTIONS IN PLACED: BED IN LOWEST LOCKED POSITION, HOB ELEVATED, SIDE RAILS UP X3 AND CALL LIGHT AND TABLE WITHIN REACH. WILL CONTINUE WITH PLAN OF CARE.
[2021-08-28] MEDS: CALCITRIOL 0.25 MCG CAPSULE PO SCH (08:09)
[2021-08-28] MEDS: risperiDONE 1 MG TABLET PO SCH ×3 (08:09→16:07)
[2021-08-28] MEDS: ASCORBIC ACID 500 MG TABLET PO SCH (08:09)
[2021-08-28] MEDS: PHENYTOIN EXTENDED RELEASE 100 MG CAPSULE PO SCH ×3 (08:09→16:06)
[2021-08-28] MEDS: MULTIVIT W/MINERALS 1 TAB TABLET PO SCH (08:09)
[2021-08-28] MEDS: LEVETIRACETAM (250 MG) 250 MG TABLET PO SCH ×2 (08:09→21:54)
[2021-08-28] MEDS: SEVELAMER CARBONATE 800 MG TABLET PO SCH ×3 (08:09→17:03)
[2021-08-28] MEDS: DIVALPROEX SODIUM 250 MG TABLET.DR PO SCH ×2 (08:09→21:55)
[2021-08-28] MEDS: BENZTROPINE MESYLATE (1 MG) 1 MG TABLET PO SCH (08:09)
[2021-08-28] MEDS: FERROUS SULFATE (325 MG) 325 MG/TAB TABLET PO SCH (08:10)
[2021-08-28] MEDS: PROSOURCE / PROSTAT (PYXIS) 30 ML UDC PO SCH ×3 (08:11→16:07)
[2021-08-28] MEDS: NICOTINE PATCH (21MG) 21 MG PATCH.TD24 TD SCH (08:11)
[2021-08-28] MEDS: POVIDONE-IODINE OINT 28.4 GM TUBE TP SCH ×2 (08:12→16:07)
[2021-08-28 08:34] LABS: BASOPHILS # (AUTO) 0.1 K/uL (0.0-0.2); BASOPHILS % (AUTO) 1.1 % (0.0-2.0); EOSINOPHILS % (AUTO) 4.9 % (0.0-6.0); HEMATOCRIT 23 % (39-51); HEMOGLOBIN 7.8 g/dL (13.5-17.5); LYMPHOCYTES # (AUTO) 1.5 K/uL (0.8-4.8); LYMPHOCYTES % (AUTO) 23.6 % (20.0-44.0); MEAN CORPUSCULAR HGB CONC 34 g/dl (31.0-36.0); MEAN CORPUSCULAR VOLUME 94 fL (80-96); MONOCYTES # (AUTO) 0.8 K/uL (0.1-1.30); MONOCYTES % (AUTO) 12.2 % (2.0-12.0); NEUTROPHILS # (AUTO) 3.6 K/uL (1.8-8.9); NEUTROPHILS % (AUTO) 58.2 % (43.0-81.0); PLATELET COUNT (AUTO) 139 K/uL (150-450); RED BLOOD CELL COUNT(AUTO) 2.46 MIL/uL (4.5-6.0); WHITE BLOOD COUNT (AUTO) 6.2 K/uL (4.3-11.0)
[2021-08-28 09:23] LABS: BILIRUBIN,TOTAL 0.2 mg/dL (0.2-1.0); CALCIUM, SERUM 7.7 mg/dL (8.5-10.1); CREATININE 5.4 mg/dL (0.6-1.3); PHOSPHORUS 4.8 mg/dL (2.5-4.9); TOTAL PROTEIN, SERUM 4.6 g/dL (6.4-8.2)
[2021-08-28 09:36] LABS: ALBUMIN 1.4 g/dL (3.4-5.0)
[2021-08-28 09:39] LABS: MAGNESIUM 2.1 mg/dL (1.8-2.4)
--- NOTE | 2021-08-28 09:45 | NUR ---
RN NOTES RECEIVED CALL FROM ELECTROLOGIST CHRISTEL THAT PT HAS CRITICAL LOW ALBUMIN 1.4, DR CAMACHO MADE AWARE AND ACKNOWLEDGED, NO NEW ORDER MADE AT THIS TIME.
--- NOTE | 2021-08-28 10:09 | NUR ---
RN NOTES PT STARTED ON BLOOD TRANSFUSION OF PRBC X(279 ML) VIA LIAT MIDLINE. WILL MONITOR FOR ANY ALLERGIC/ADVERSE REACTIONS.
--- NOTE | 2021-08-28 10:24 | NUR ---
RN NOTES NO ALLERGIC OR ADVERSED REACTIONS NOTED AFTER 15MINUTES OF STARTING BLOOD TRANSFUSION. V/S TAKEN, STABLE AND RECORDED. WILL CONTINUE TO MONITOR.
[2021-08-28] MEDS ORDERED: NALOXONE PREFILLED SYRINGE 2 MG/2 ML SYRINGE IV PRN (11:30)
[2021-08-28] MEDS ORDERED: FENTANYL PF 250MCG/5ML AMPUL IV PRN (11:30)
[2021-08-28] MEDS ORDERED: MIDAZOLAM HCL 2 MG/2ML VIAL IV PRN (11:30)
[2021-08-28] MEDS ORDERED: FLUMAZENIL 0.5 MG VIAL IV PRN (11:30)
--- NOTE | 2021-08-28 13:05 | NUR ---
RN NOTES PT ACCOMPANIED FOR CT GUIDED KIDNEY NEEDLE BIOPSY BECAUSE PT IS ON BLOOD TRANSFUSION. RETURNED TO UNIT AT 1300 S/P CT WITH BIOPSY OF RIGHT KIDNEY AT 1300. PT TOLERATED PROCEDURE AND SPECIMEN SENT TO LAB. V/S STABLE. WILL CONTINUE TO MONITOR.
--- NOTE | 2021-08-28 13:28 | NUR ---
RN NOTES PT S/P BLOOD TRANSFUSION OF PRBC X1 ( 279ML) AND TOLERATED WELL WITH NO ADVERSE/ALLERGIC REACTIONS NOTED. V/S STABLE AND RECORDED. WILL CONTINUE TO MONITOR.
--- NOTE | 2021-08-28 14:49 | NUR ---
RN NOTES PT STARTED ON HEMODIALYSIS ON RIGHT FEMORAL HD CATH BY DIALYSIS NURSE KRYSTYNA.
[2021-08-28] MEDS ORDERED: EPOETIN ALFA-EPBX 20,000 UNIT/ML VIAL SQ ONE (16:00)
[2021-08-28] MEDS ORDERED: EPOETIN ALFA (20,000 UNIT) 20,000 UNIT/ML VIAL SQ ONE (16:00)
[2021-08-28] MEDS: AMLODIPINE BESYLATE 2.5 MG TABLET PO SCH (17:04)
--- NOTE | 2021-08-28 17:53 | NUR ---
RN NOTES HEMODIALYSIS COMPLETED AND PT TOLERATED PROCEDURE WITH 2,00O ML OUT. S/P HD V/S: BP 161/82, P 70, R 18 T 97.8F AND SP02 96% ON ROOM AIR. DIALYSIS NURSE PLACED NEW DRESSING ON RIGHT FEMORAL HD CATH. WILL CONTINUE TO MONITOR.
--- NOTE | 2021-08-28 18:33 | NUR ---
MS RN CLOSING NOTES PATIENT IN BED ASLEEP AT THIS TIME, EASILY AWAKENS TO TACTILE AND VERBAL STIMULI. PT IS A/O X 2-3. ABLE TO MAKE NEEDS KNOWN. ON ROOM AIR, TOLERATING WELL WITH NO ACUTE S/S OF RESPIRATORY DISTRESS NOTED DURING THE DAY. IV ACCESS ON RIGHT HAND G#22 AND VIVIAN MIDLINE BOTH INTACT AND PATENT. PT WITH RIGHT FEMORAL HD-CATH IN PLACE WITH DRESSING DRY AND INTACT. ALL NEEDS AND CARE ATTENDED WELL. SAFETY PRECAUTIONS KEPT IN PLACED: BED IN LOWEST LOCKED POSITION, HOB ELEVATED, SIDE RAILS UP X3 AND CALL LIGHT AND TRAY TABLE WITHIN REACH OF PT. WILL ENDORSE MONTY TO COMMUNICATION SPECIALIST NURSE.
--- NOTE | 2021-08-29 06:50 | NUR ---
MS RN CLOSING NOTE PATIENT IN BED WITH EYES CLOSED AND BLANKET OVER HIM. EASY TO AROUSE AND GETS ANGRY WHEN HIS TOUCHED. NO S/S OF APPARENT DISTRESS ON ROOM AIR. NO C/O PAIN. L. FOOT TX DONE. R. HAND IV TAKEN OFF. L.UA MIDLINE INTACT. PATIENT NOTED TO HAVE DRESSING ON HIS BACK FROM THE KIDNEY BIOPSY-- DRY AND INTACT-- NO BLEEDING. R. FEMORAL HD CATH DRESSING REINFORCED. R. HAND IV PULLED OUT AND REMOVED. ALL NEEDS ATTENDED. ALL SCHEDULED MEDICATIONS ADMINISTERED. SAFETY KEPT IN PLACE THE WHOLE SHIFT. WILL ENDORSE TO MORNING SHIFT RN FOR CONTINUITY OF CARE.
[2021-08-29 07:00] LABS: CALCIUM, SERUM 7.9 mg/dL (8.5-10.1); CREATININE 4.4 mg/dL (0.6-1.3)
[2021-08-29 07:03] LABS: BASOPHILS # (AUTO) 0.1 K/uL (0.0-0.2); BASOPHILS % (AUTO) 0.8 % (0.0-2.0); EOSINOPHILS % (AUTO) 4.3 % (0.0-6.0); HEMATOCRIT 26 % (39-51); HEMOGLOBIN 8.8 g/dL (13.5-17.5); LYMPHOCYTES # (AUTO) 1.4 K/uL (0.8-4.8); LYMPHOCYTES % (AUTO) 18.9 % (20.0-44.0); MEAN CORPUSCULAR HGB CONC 34 g/dl (31.0-36.0); MEAN CORPUSCULAR VOLUME 93 fL (80-96); MONOCYTES # (AUTO) 0.8 K/uL (0.1-1.30); MONOCYTES % (AUTO) 10.2 % (2.0-12.0); NEUTROPHILS # (AUTO) 4.9 K/uL (1.8-8.9); NEUTROPHILS % (AUTO) 65.8 % (43.0-81.0); PLATELET COUNT (AUTO) 130 K/uL (150-450); RED BLOOD CELL COUNT(AUTO) 2.76 MIL/uL (4.5-6.0); WHITE BLOOD COUNT (AUTO) 7.4 K/uL (4.3-11.0)
[2021-08-29] MEDS: SEVELAMER CARBONATE 800 MG TABLET PO SCH ×3 (07:25→17:45)
--- NOTE | 2021-08-29 07:44 | NUR ---
MS RN OPENING NOTE RECEIVED PATIENT IN BED SLEEPING WITH COVERED BLANKET.AWAKE UPON CALLING HIS NAME . NO S/S OF DISTRESS .ON ROOM AIR. NO C/O PAIN. L.UA MIDLINE INTACT. S/P OF KIDNEY BIOPSY. DRESSING DRY AND INTACT. NO BLEEDING NOTED. RIGHT FEMORAL HD CATH INTACT. SAFETY MEASURES IN PLACE. BED LOCKED IN THE LOWEST POSITION. TABLE AND CALL LIGHT IN REACH.WILL CONTINUE TO MONITOR.
--- NOTE | 2021-08-29 08:00 | NUR ---
RN NOTES PATIENT REFUSED VITAL SIGNS CHEKS FOR 0800 AM.
[2021-08-29] MEDS: LEVETIRACETAM (250 MG) 250 MG TABLET PO SCH ×2 (08:32→21:12)
[2021-08-29] MEDS: CALCITRIOL 0.25 MCG CAPSULE PO SCH (08:32)
[2021-08-29] MEDS: BENZTROPINE MESYLATE (1 MG) 1 MG TABLET PO SCH (08:32)
[2021-08-29] MEDS: NICOTINE PATCH (21MG) 21 MG PATCH.TD24 TD SCH (08:32)
[2021-08-29] MEDS: FERROUS SULFATE (325 MG) 325 MG/TAB TABLET PO SCH (08:32)
[2021-08-29] MEDS: DIVALPROEX SODIUM 250 MG TABLET.DR PO SCH ×3 (08:33→16:17)
[2021-08-29] MEDS: MULTIVIT W/MINERALS 1 TAB TABLET PO SCH (08:33)
[2021-08-29] MEDS: PHENYTOIN EXTENDED RELEASE 100 MG CAPSULE PO SCH ×3 (08:33→16:17)
[2021-08-29] MEDS: ASCORBIC ACID 500 MG TABLET PO SCH (08:33)
[2021-08-29] MEDS: risperiDONE 1 MG TABLET PO SCH ×3 (08:35→16:17)
[2021-08-29] MEDS: PROSOURCE / PROSTAT (PYXIS) 30 ML UDC PO SCH ×3 (08:35→16:18)
[2021-08-29] MEDS: POVIDONE-IODINE OINT 28.4 GM TUBE TP SCH ×2 (11:19→16:19)
[2021-08-29 16:00] VITALS: BP 126/48
[2021-08-29] MEDS: AMLODIPINE BESYLATE 2.5 MG TABLET PO SCH (17:45)
--- NOTE | 2021-08-29 19:30 | NUR ---
MS RN CLOSING NOTE PATIENT IN BED SLEEPING WITH COVERED BLANKET.AWAKE UPON CALLING HIS NAME . NO S/S OF DISTRESS .ON ROOM AIR. NO C/O PAIN. L.UA MIDLINE INTACT. S/P OF KIDNEY BIOPSY. DRESSING DRY AND INTACT. NO BLEEDING NOTED. RIGHT FEMORAL HD CATH INTACT. ALL UE MEDS AND TREATMENT GIVEN ORDERED. SAFETY MEASURES IN PLACE. BED LOCKED IN THE LOWEST POSITION. TABLE AND CALL LIGHT IN REACH.WILL ENDORSE FOR MONTY.
--- NOTE | 2021-08-29 19:41 | NUR ---
MS RN OPENING NOTE PATIENT RECEIVED AWAKE IN BED. A/OX3. NO S/S OF DISTRESS, BREATHING UNLABORED ON RM AIR. VIVIAN MIDLINE INTACT AND PATENT SL; R FEM CATH INTACT. SAFETY MEASURES IN PLACE: BED AT LOWEST POSITION, RAILS UP X2, CALL ROONEY WITHIN REACH. WILL CONTINUE TO MONITOR PATIENT.
[2021-08-29 20:00] VITALS: BP 160/88
--- NOTE | 2021-08-30 05:33 | NUR ---
RN NOTE PATIENT REFUSED TO HAVE HIS BLOOD DRAWN. I EDUCATED THE PATIENT ON THE NEED TO HAVE BLOOD DRAWN AND HIS PLAN OF CARE, BUT HE STILL REFUSED. HE DID STATE "MAYBE LATER ON". I ADVISED THE APPRAISER PERSONAL PROPERTY TO TRY ANOTHER ATTEMPT AFTER BREAKFAST THIS MORNING. PATIENT STABLE; WILL CONTINUE TO MONITOR PATIENT.
--- NOTE | 2021-08-30 06:29 | NUR ---
MS RN CLOSING NOTE PATIENT IS ASLEEP IN BED. A/OX3. NO S/S OF DISTRESS, BREATHING UNLABORED ON RM AIR. VIVIAN MIDLINE SL INTACT AND PATENT. SAFETY MEASURES IN PLACE: BED AT LOWEST POSITION, RAILS UP X3, CALL ROONEY WITHIN REACH. WILL ENDORSE TO NEXT SHIFT FOR MONTY.
[2021-08-30 08:00] VITALS: BP 140/71
[2021-08-30] MEDS: SEVELAMER CARBONATE 800 MG TABLET PO SCH ×3 (08:17→17:17)
[2021-08-30] MEDS: MULTIVIT W/MINERALS 1 TAB TABLET PO SCH (08:17)
[2021-08-30] MEDS: LEVETIRACETAM (250 MG) 250 MG TABLET PO SCH ×2 (08:17→21:13)
[2021-08-30] MEDS: DIVALPROEX SODIUM 250 MG TABLET.DR PO SCH ×3 (08:17→16:39)
[2021-08-30] MEDS: risperiDONE 1 MG TABLET PO SCH ×3 (08:17→16:38)
[2021-08-30] MEDS: CALCITRIOL 0.25 MCG CAPSULE PO SCH (08:18)
[2021-08-30] MEDS: FERROUS SULFATE (325 MG) 325 MG/TAB TABLET PO SCH (08:18)
[2021-08-30] MEDS: ASCORBIC ACID 500 MG TABLET PO SCH (08:18)
[2021-08-30] MEDS: NICOTINE PATCH (21MG) 21 MG PATCH.TD24 TD SCH (08:18)
[2021-08-30] MEDS: PHENYTOIN EXTENDED RELEASE 100 MG CAPSULE PO SCH ×3 (08:18→16:38)
[2021-08-30] MEDS: BENZTROPINE MESYLATE (1 MG) 1 MG TABLET PO SCH (08:18)
[2021-08-30] MEDS: PROSOURCE / PROSTAT (PYXIS) 30 ML UDC PO SCH ×3 (08:26→16:39)
[2021-08-30] MEDS: POVIDONE-IODINE OINT 28.4 GM TUBE TP SCH ×2 (08:27→16:38)
--- NOTE | 2021-08-30 09:05 | NUR ---
RN NOTES PATIENT IN BED RESTING. ABLE TO TAKE AM MEDS. NOT IN ACUTE DISTRESS. TOLERATING ROOM AIR, BREATHING EVEN AND UNLABORED. SAFETY MEASURES IN PLACE. WILL CONTINUE TO MONITOR.
--- NOTE | 2021-08-30 14:50 | NUR ---
RN NOTES PATIENT ABLE TO AMBULATE W/ CGA TO THE BATHROOM.
[2021-08-30 14:54] LABS: BASOPHILS % (AUTO) 0.7 % (0.0-2.0); EOSINOPHILS % (AUTO) 5.5 % (0.0-6.0); HEMATOCRIT 27 % (39-51); HEMOGLOBIN 9.2 g/dL (13.5-17.5); LYMPHOCYTES # (AUTO) 1.7 K/uL (0.8-4.8); LYMPHOCYTES % (AUTO) 27.2 % (20.0-44.0); MEAN CORPUSCULAR HGB CONC 34 g/dl (31.0-36.0); MEAN CORPUSCULAR VOLUME 93 fL (80-96); MONOCYTES # (AUTO) 0.7 K/uL (0.1-1.30); MONOCYTES % (AUTO) 11.6 % (2.0-12.0); NEUTROPHILS # (AUTO) 3.5 K/uL (1.8-8.9); PLATELET COUNT (AUTO) 136 K/uL (150-450); RED BLOOD CELL COUNT(AUTO) 2.96 MIL/uL (4.5-6.0); WHITE BLOOD COUNT (AUTO) 6.4 K/uL (4.3-11.0)
[2021-08-30 15:19] LABS: CALCIUM, SERUM 7.6 mg/dL (8.5-10.1); CREATININE 5.9 mg/dL (0.6-1.3); POTASSIUM 4.2 mmol/L (3.5-5.1)
[2021-08-30 16:01] VITALS: BP 151/78
[2021-08-30] MEDS: AMLODIPINE BESYLATE 2.5 MG TABLET PO SCH (17:17)
--- NOTE | 2021-08-30 18:41 | NUR ---
RN NOTES PATIENT IN BED RESTING, ABLE TO BE AWAKENED. FINISHED EATING DINNER, NO ASPIRATION NOTED. NO COMPLAINTS AT THIS TIME. BREATHING EVEN AND UNLABORED. SAFETY MEASURES MAINTAINED. WILL ENDORSE TO BACTERIOLOGIST MEDICAL RN FOR MONTY.
--- NOTE | 2021-08-30 19:24 | NUR ---
MS OPENING NOTE PATIENT ASLEEP IN BED. A/OX3. NO S/S OF DISTRESS. BREATHING UNLABORED. VIVIAN MIDLINE SL INTACT AND PATENT. SAFETY MEASURES IN PLACE: BED AT LOWEST POSITION, RAILS UP X3, CALL ROONEY WITHIN REACH. WILL CONTINUE TO MONITOR PATIENT.
[2021-08-30 20:00] VITALS: BP 143/83
--- NOTE | 2021-08-31 06:44 | NUR ---
MS RN CLOSING NOTE PATIENT IS ASLEEP IN BED. A/OX3. NO S/S OF DISTRESS. BREATHING W/O DIFFICULTY. VIVIAN MIDLINE SL INTACT AND PATENT. SAFETY MEASURES IN PLACE: BED AT LOWEST POSITION, RAILS UP X3, CALL ROONEY WITHIN REACH. WILL ENDORSE TO NEXT SHIFT FOR MONTY.
--- NOTE | 2021-08-31 07:31 | NUR ---
RN NOTES PATIENT CURRENTLY SLEEPING IN BED, EYES CLOSED, ABLE TO BE AWAKENED. NOT IN ACUTE DISTRESS. VERBALIZES WANTING TO SLEEP SOME MORE AT THIS TIME. SAFETY MEASURES IN PLACE. WILL CONTINUE TO MONITOR.
[2021-08-31 08:00] VITALS: BP 153/75
[2021-08-31] MEDS: NICOTINE PATCH (21MG) 21 MG PATCH.TD24 TD SCH (08:00)
[2021-08-31] MEDS: DIVALPROEX SODIUM 250 MG TABLET.DR PO SCH ×2 (08:38→12:11)
[2021-08-31] MEDS: POVIDONE-IODINE OINT 28.4 GM TUBE TP SCH (08:38)
[2021-08-31] MEDS: risperiDONE 1 MG TABLET PO SCH ×2 (08:39→12:11)
[2021-08-31] MEDS: MULTIVIT W/MINERALS 1 TAB TABLET PO SCH (08:39)
[2021-08-31] MEDS: PHENYTOIN EXTENDED RELEASE 100 MG CAPSULE PO SCH ×2 (08:39→12:11)
[2021-08-31] MEDS: LEVETIRACETAM (250 MG) 250 MG TABLET PO SCH (08:39)
[2021-08-31] MEDS: ASCORBIC ACID 500 MG TABLET PO SCH (08:40)
[2021-08-31] MEDS: BENZTROPINE MESYLATE (1 MG) 1 MG TABLET PO SCH (08:40)
[2021-08-31] MEDS: SEVELAMER CARBONATE 800 MG TABLET PO SCH ×2 (08:40→12:11)
[2021-08-31] MEDS: CALCITRIOL 0.25 MCG CAPSULE PO SCH (08:40)
[2021-08-31] MEDS: FERROUS SULFATE (325 MG) 325 MG/TAB TABLET PO SCH (08:40)
[2021-08-31] MEDS: PROSOURCE / PROSTAT (PYXIS) 30 ML UDC PO SCH ×2 (08:42→12:11)
[2021-08-31] MEDS ORDERED: CALC0.258 PO (10:33)
[2021-08-31] MEDS ORDERED: SEVE800T7 PO (10:33)
[2021-08-31] MEDS ORDERED: AMLO2.5T4 PO (10:33)
--- NOTE | 2021-08-31 12:30 | NUR ---
RN NOTES PHOTOS OF SKIN ISSUES TAKEN AND PLACED IN THE CHART. UNABLE TO OBTAIN ENTIRE VIEW OF LEFT HEEL PATIENT DID NOT WANT TO REPOSITION HIS LEFT LEG.
--- NOTE | 2021-08-31 13:21 | NUR ---
RN NOTES PATIENT REPORT, DISCHARGE INSTRUCTIONS/EDUCATION, AND HD INFORMATION GIVEN TO DEJA IVY [employer] NETWORK ADMINISTRATOR AT [facility] ([phone]). ROOM 207-A PER CUTTING MACHINE FIXER.
--- NOTE | 2021-08-31 15:45 | NUR ---
RN NOTES PATIENT REFUSED FOR STAFF TO REMOVE MIDLINE, STATING "I WANT TO SLEEP". SN[facility] ABLE TO REMOVE PERIPHERAL LINE. 2 REEL SYSTEM OPERATOR AT BEDSIDE AND PROVIDED ENDORSEMENT. PATIENT PICKED UP VIA GURNEY, CURRENTLY SLEEPING W/ EYES CLOSED BUT RESPONDS VERBALLY WHEN CALLED. CHARGE NURSE AND MD AWARE OF DISCHARGE.
== END 2021-08-31 15:30 | DRG 690 ==
LOC: ER 14:07 → MED 17:26 → UNDOADMIN 17:26 → TRANSITION 20:49 → MED 08-16 06:49
PROVIDERS: ADMIT Internal Medicine; ATTEND Internal Medicine
PROC: 30233N1 Transfusion of Nonautologous Red Blood Cells into Peripheral Vein, Percutaneous Approach (ICD-10-PCS; 2021-08-17)
PROC: 05H933Z Insertion of Infusion Device into Right Brachial Vein, Percutaneous Approach (ICD-10-PCS; principal; 2021-08-19)
PROC: 05HA33Z Insertion of Infusion Device into Left Brachial Vein, Percutaneous Approach (ICD-10-PCS; 2021-08-24)
DX: N12 Tubulo-interstitial nephritis, not specified as acute or chronic (principal); N17.0 Acute kidney failure with tubular necrosis; J44.9 Chronic obstructive pulmonary disease, unspecified; G40.909 Epilepsy, unspecified, not intractable, without status epilepticus; D63.8 Anemia in other chronic diseases classified elsewhere; N18.9 Chronic kidney disease, unspecified; E11.22 Type 2 diabetes mellitus with diabetic chronic kidney disease; E11.621 Type 2 diabetes mellitus with foot ulcer; E11.51 Type 2 diabetes mellitus with diabetic peripheral angiopathy without gangrene; R31.29 Other microscopic hematuria; L97.529 Non-pressure chronic ulcer of other part of left foot with unspecified severity; L97.519 Non-pressure chronic ulcer of other part of right foot with unspecified severity; B35.1 Tinea unguium; E87.5 Hyperkalemia; Z86.711 Personal history of pulmonary embolism; E83.89 Other disorders of mineral metabolism; F25.0 Schizoaffective disorder, bipolar type; Z20.822 Contact with and (suspected) exposure to COVID-19
CPT/HCPCS: 36410; 36415; 71045-TC; 73650-TC; 73660-TC; 76770-TC; 77012-TC; 80048-TC; 80053-TC; 80076-TC; 80164-TC; 80177; 80185-TC; 81001; 82272-TC; 82550-TC; 82553; 83520; 83540-TC; 83735-TC; 83970; 84100-TC; 84155; 84165; 84443-TC; 84550-TC; 85025-TC; 85610-TC; 85652-TC; 86225; 86235; 86256; 86706; 86803; 86850-TC; 87081-TC; 87340; 90935-TC; A4216; A4349; A6403; C1750; C9803; G0378; J0885; J1200; J1630; J1940; J2060; J2250; J2405; J3010; J7030; J7040; J7050; J7070; P9016; P9047